=== PATIENT | female | born 2000 | race Two or more races ===

== ENCOUNTER 2023-10-20 09:24 | Emergency (ER) | payer BC, OTHER ==
[~2023-10-20] VITALS: Ht 167.6 cm; Wt 90.8 kg
[2023-10-20 10:38] LABS: Basophils # (auto) 0 10 ^3/uL (0-0.2); Basophils % (auto) 0.4 % (0.0-2.0); Eosinophils # (auto) 0 10 ^3/uL (0-0.8); Hematocrit 36.6 % (36.0-46.0); Hemoglobin 11.8 g/dL (12.2-16.2); Lymphocytes # (auto) 0.5 10 ^3/uL (0.4-5.4); Lymphocytes % (auto) 6.3 % (10.0-50.0); Mean Corpuscular Hgb Conc. 32.2 g/dL (32.0-36.0); Mean Corpuscular Volume 71.5 fL (80.0-100.0); Monocytes # (auto) 1.1 10 ^3/uL (0-1.3); Monocytes % (auto) 13.5 % (0.0-12.0); Neutrophils # (auto) 6.7 10 ^3/uL (1.6-8.6); Neutrophils % (auto) 79.8 % (37.0-80.0); Platelet Count (auto) 229 10^3/uL (140-450); Red Blood Cells 5.12 10^6/uL (4.0-5.20); Red Cell Distribution Width 19.4 % (11.8-14.3); White Blood Cell 8.4 10^3/uL (4.4-10.8)
[2023-10-20 12:50] VITALS: BP 111/61; PULSE 83; RESP 15; TEMP 98.6; O2SAT 100
== END 2023-10-20 13:05 | disposition home or self-care (01) ==
LOC: ER 09:40
DX: O20.0 Threatened abortion (principal); R10.2 Pelvic and perineal pain; Z3A.01 Less than 8 weeks gestation of pregnancy
CPT/HCPCS: 36415; 76801; 76817; 84702; 85025

== ENCOUNTER 2024-08-06 06:29 | Inpatient (IN) | payer BC, MEDICAID ==
[~2024-08-06] VITALS: Ht 167.6 cm; Wt 102.1 kg
--- NOTE | 2024-08-06 06:45 | ECG ---
[facility] Test Date: 2024-08-06 Test Time: 06:44:14 Pat Name: BELEN MALONEY Department: EED Room: [address] [place] [address] Gender: F [employer] Manager: JEYSON : 2000 Requested By: DASH CLOUD Order Number: [id number] Reading MD: Pool Chaudhry Measurements Intervals [place] Rate: 105 P: 75 LA: 137 QRS: 76 QRSD: 86 T: 34 QT: 337 QTc: 446 Interpretive Statements Sinus tachycardia Electronically Signed On 08-07-2024 21:18:25 PDT by Pool Chaudhry Please click the below link to view image of tracing.
--- NOTE | 2024-08-06 06:51 | ED.PDOC ---
HPI Comments 23 year old female presents to the ED with a chief complaint of chest pain onset 1 day. Patient states she has been experiencing chest pain for the past day, substernal, described as a pressure sensation as well as shortness of breath. Patient was experiencing back pain for the past 5 days, has been taking Ibuprofen with intermediate relief of symptoms. PMHx anemia. Denies palpitations, fevers, chills, headache, dizziness, weakness, numbness/tingling, blurry vision, fevers, chills, nausea, vomiting. No other symptoms or modifying factors present at this time. Chief Complaint: Chest Pain Time Seen by MD: 06:40 Reviewed Notes: Medications, Allergies Allergies: Coded Allergies: NO KNOWN ALLERGIES (Unverified , 10/20/23) Information Source: Patient Mode of Arrival: Ambulatory Severity: Moderate Timing: Days Duration: Since onset Prehospital treatment: Pain Meds (Ibuprofen) Location: Substernal Radiation: No Radiation Quality: Pressure Onset: At Rest Cardiac Risk Factors: None PE Risk Factors: None History of: None Associated Signs and Symptoms: SOB, Back Pain Past Medical History PAST MEDICAL HISTORY: Anemia Surgical History: Denies all surgeries MARKETING ACCOUNT MANAGER History: No Pertinent MARKETING ACCOUNT MANAGER History Family History Family History: Family hx of DM Social History Smoker: Non-Smoker Alcohol: Denies ETOH Use Drugs: Denies Drug Use Lives In: Home Constitutional: denies: chills, diaphoresis, fatigue, fever, malaise, sweats, weakness, others EENTM: denies: blurred vision, double vision, ear bleeding, ear discharge, ear drainage, ear pain, ear ringing, eye pain, eye redness, hearing loss, mouth pain, mouth swelling, nasal discharge, nose bleeding, nose congestion, nose pain, photophobia, tearing, throat pain, throat swelling, voice changes, others Respiratory: reports: shortness of breath; denies: cough, hemoptysis, ort hopnea, SOB at rest, SOB with excertion, stridor, wheezing, others Cardiovascular: reports: chest pain; denies: dizzy spells, diaphoresis, Dyspnea on exertion, edema, irregular heart beat, left arm pain, lightheadedness, palpitations, PND, syncope, others Gastrointestinal: denies: abdomen distended, abdominal pain, blood streaked bowels, constipated, diarrhea, dysphagia, difficulty swallowing, hematemesis, melena, nausea, poor appetite, poor fluid intake, rectal bleeding, rectal pain, vomiting, others Genitourinary: denies: abnormal vagina bleeding, burning, dyspareunia, dysuria, flank pain, frequency, hematuria, incontinence, pain, , vagina discharge, urgency, others Neurological: denies: dizziness, fainting, headache, left sided numbness, left sided weakness, numbness, paresthesia, pre-existing deficit, right sided numbness, right sided weakness, seizure, speech problems, tingling, tremors, w eakness, others Musculoskeletal: reports: back pain; denies: gout, joint pain, joint swelling, muscle pain, muscle stiffness, neck pain, others Integumetry: denies: bruises, change in color, change in hair/nails, dryness, laceration, lesions, lumps, rash, wounds, others Allergic/Immunocompromised: denies: Difficulty Healing, Frequent Infections, Hives, Itching, others Hematologic/Lymphatic: denies: anemia, blood clots, easy bleeding, easy bruising, swollen glands, others Endocrine: denies: excessive hunger, excessive sweating, excessive thirst, excessive urination, flushing, intolerance to cold, intolerance to heat, unexplained weight gain, unexplained weight loss, others Psychiatric: denies: anxiety, bipolar disorder, depression, hopeless, panic disorder, schizophrenia, sleepless, suicidal, others All Other Systems: Reviewed and Negative Physical Exam General Appearance: Normal HEENT: Normal ENT Inspection, Pharynx Normal, TMs Normal Neck: Full Range of Motion, Non-Tender, Normal, Normal Inspection Respiratory: Chest Non-Tender, Lungs Clear, No Accessory Muscle Use, No Respiratory Distress, Normal Breath Sounds Cardiovascular: No Edema, No JVD, No Murmur, No Gallop, Normal Peripheral Pulses, Regular Rate/Rhythm Breast Exam: Deferred Gastrointestinal: No Organomegaly, Non Tender, No Pulsatile Mass, Normal Bowel Sounds, Soft Genitalia: Deferred Pelvic: Deferred Rectal: Deferred Extremities: No calf tenderness, Normal capillary refill, Normal inspection, Normal range of motion, Non-tender, No pedal edema Musculoskeletal : Apperance: Normal Neurologic: Alert, credit historian II-XII nml as Tested, No Motor Deficits, Normal Affect, Normal Mood, No Sensory Deficits Cerebellar Function: Normal Reflexes: Normal Skin: Dry, Normal Color, Warm Lymphatic: No Adenopathy EKG EKG : Pulse Rate (adult): 105 Cardiac Rhythm: ST Was a procedure done? Was a procedure done?: No CP Differential Dx Differential Diagnosis: MAT, PAC's, PVC's Differential Diagnosis: HTN Essential, HTN Accelerated Differential Diagnosis: Gastritis, Myocardial Infarction X-Ray, Labs, Meds, VS Vital Signs Date Time Temp Pulse Resp B/P (MAP) Pulse Ox O2 Delivery O2 Flow Rate FiO2 08/06/24 08:30 105 08/06/24 07:45 98.6 99 18 129/75 (93) 100 98.6 08/06/24 07:45 99 08/06/24 06:44 105 08/06/24 06:44 98.3 117 20 110/66 (81) 99 98.3 Lab Test 08/06/24 08:29 08/06/24 07:50 08/06/24 07:15 Range/Units Troponin I High Sensitivity Pending < 3 L </=34 ng/L Urine Color Colorless Yellow Urine Clarity Turbid H Clear Urine pH 7.0 5.0-9.0 Urine Specific [place] 1.018 1.001-1.035 Urine Protein Negative Negative Urine Ketones Negative Negative Urine Blood 3+ H Negative /uL Urine Nitrite 1+ H Negative Urine Bilirubin Negative Negative Urine Urobilinogen Normal Negative mg/dL Urine Leukocyte Esterase 2+ Negative /uL Urine RBC 38 0 - 4 /hpf Urine Microscopic WBC 51 H 0-5 /HPF Urine Squamous Epithelial Cells Few <5 /hpf Urine Bacteria Few H None Seen /hpf Urine Glucose Normal Normal mg/dL White Blood Count 13.6 H 4.4-10.8 10^3/uL Red Blood Count 4.57 4.0-5.20 10^6/uL Hemoglobin 11.5 L 12.2-16.2 g/dL Hematocrit 35.4 L 36.0-46.0 % Mean Corpuscular Volume 77.4 L 80.0-100.0 fL Mean Corpuscular Hemoglobin 25.2 L 28.0-32.0 pg Mean Corpuscular Hemoglobin Concent 32.6 32.0-36.0 g/dL Red Cell Distribution Width 16.1 H 11.8-14.3 % Platelet Count 228 140-450 10^3/uL Mean Platelet Volume 7.8 6.9-10.8 fL Neutrophils (%) (Auto) 78.8 37.0-80.0 % Lymphocytes (%) (Auto) 8.0 L 10.0-50.0 % Monocytes (%) (Auto) 12.9 H 0.0-12.0 % Eosinophils (%) (Auto) 0.1 0.0-7.0 % Basophils (%) (Auto) 0.2 0.0-2.0 % Neutrophils # (Auto) 10.7 H 1.6-8.6 10 ^3/uL Lymphocytes # (Auto) 1.1 0.4-5.4 10 ^3/uL Monocytes # (Auto) 1.8 H 0-1.3 10 ^3/uL Eosinophils # (Auto) 0 0-0.8 10 ^3/uL Basophils # (Auto) 0 0-0.2 10 ^3/uL Nucleated Red Blood Cells 0.0 % Sodium Level 138 136-145 mmol/L Potassium Level 4.0 3.5-5.1 mmol/L Chloride Level 104 98-107 mmol/L Carbon Dioxide Level 22 20-31 mmol/L Anion Gap 12 5-15 Blood Urea Nitrogen 12 9-23 mg/dL Creatinine 0.72 0.550-1.02 mg/dL Glomerular Filtration Rate Calc 120 >90 mL/min BUN/Creatinine Ratio 16.7 10.0-20.0 Serum Glucose 109 H 74-106 mg/dL Calcium Level 9.7 8.7-10.4 mg/dL Current Medications Medications (Trade) Dose Ordered Sig/Anthony Route Start Time Stop Time Status Last Admin Famotidine (Pepcid Tablet) 20 mg ONCE ONCE PO 08/06/24 06:45 08/06/24 06:46 DC 08/06/24 07:46 Al Hydrox/Mg Hydrox/Simethicone (Maalox Plus) 15 ml ONCE ONCE PO 08/06/24 06:45 08/06/24 06:46 DC 08/06/24 07:[address] [address] Ph: [phone] DIAGNOSTIC IMAGING Diagnostic Imaging Report : [id number] Signed PATIENT: BELEN MALONEY ACCT: [id number] UNIT: [id number] : 2000 LOC: ER ROOM / BED: / AGE / SEX: 23 / F ADM STATUS: REG ER SERVICE 1 ORDERING PHYSICIAN: DASH CLOUD MD PROCEDURE(s): CXRP - CHEST PORTABLE REASON: chest pain ORDER NUMBER(s): [id number], ACCESSION NUMBER(s): [id number] CLINICAL INFORMATION: 23 years old, Female; chest pain. TECHNIQUE: Single AP portable chest radiograph was obtained. COMPARISON: None FINDINGS: Lungs: Clear. Cardiac: Heart size is within normal limits. Pulmonary vasculature: Unremarkable. Mediastinum/simeon: Unremarkable. Bones: No acute osseous abnormality identified. Other: No other significant findings. IMPRESSION: No evidence of acute disease in the chest. ATED BY: KAUSHAL STONE DO DICTATED DATE/TIME: 08/06/24731 SIGNED BY: KAUSHAL STONE DO SIGNED DATE/TIME: 08/06/24731 CC: Time of 1ST Reevaluation: 07:10 Reevaluation 1ST: Unchanged Patient Education/Counseling: Diagnosis, Treatment, Prognosis Family Education/Counseling: No Family Present SEPSIS Sepsis Screen Physician Orders Chest Portable (08/06/24 06:42) Troponin-I Hs (08/06/24 07:42) Troponin-I Hs (08/06/24 09:42) Electrocardigram (08/06/24 07:42) Electrocardigram (08/06/24 09:42) Vital Signs Date Time Temp Pulse Resp B/P (MAP) Pulse Ox O2 Delivery O2 Flow Rate FiO2 08/06/24 08:30 105 08/06/24 07:45 98.6 99 18 129/75 (93) 100 98.6 08/06/24 07:45 99 08/06/24 06:44 105 08/06/24 06:44 98.3 117 20 110/66 (81) 99 98.3 Laboratory Tests Test 08/06/24 07:15 White Blood Count 13.6 10^3/uL (4.4-10.8) H Medications Medications Dose Ordered Sig/Anthony Route Start Time Stop Time Status Last Admin Dose Admin Al Hydrox/Mg Hydrox/Simethicone 15 ml ONCE ONCE PO 08/06/24 06:45 08/06/24 06:46 DC 08/06/24 07:46 Famotidine 20 mg ONCE ONCE PO 08/06/24 06:45 08/06/24 06:46 DC 08/06/24 07:46 Departure 1 Departure Time of Disposition: 09:02 (Patient presented with chest pain that was concerning for possible STEMI, ACS, PE, Pneumonia, Muscle Strain, COPD, Dissection. Data: 1. I ordered and reviewed the result of at least 3 labs including a CBC, BMP, and Troponin. 2. I independently interpreted the following tests: EKG which shows normal sinus rhythm and Chest X-ray which shows a benign chest.Risk:This patient presented with a high risk of morbidity due to further diagnostic testing or treatment and may suffer from an acute cardiac or respiratory disorder. After review of all the data patient is unlikely to have a pe , dissection, and is low risk for acs. Patient is stable at this time.Workup so far is concerning for urinary tract infection. We will discharge patient home with outpatient follow up. ) Impression: Primary Impression: Acute cystitis Qualified Codes: N30.01 - Acute cystitis with hematuria Additional Impression: Acute chest pain Disposition: HOME / SELF CARE / HOMELESS Condition: Stable Additional Instructions: You presented today with chest pain. Your workup today was benign including labs, troponin, EKG, chest x-ray. Your pain may be from musculoskeletal strain, acid reflux, anxiety, or many other factors. You do have a urinary tract infection. You were prescribed antibiotics. Please take as directed. For pain you can take the followinam: Ibuprofen 400mg with food Noon: Acetaminophen 1000mg 4pm: Ibuprofen 400mg with food 8pm: Acetaminophen 1000mg You should follow up with your regular doctor within one week to ensure you are doing better. If your symptoms worsen or you have any other concerns then please return to the ER. e-Prescriptions Cefdinir (Cefdinir) 300 Mg Cap 1 CAP PO BID for 5 Days, #14 CAP Prov: DASH CLOUD MD 08/06/24 Discharged With: Self Critical Care Note Critical Care Time?: No Stability Stability form required: No Heart Score Heart Score: Heart Score Response (Comments) Value History Slightly Suspicious 0 EKG Normal 0 Age <45 0 Risk Factors No known risk factors 0 Troponin Normal limit 0 Total 0 I personally scribed for DASH CLOUD MD ([email or web address]) on 08/06/24 at 06:50. Electronically submitted by Effie Prado ([email or web address]). I personally scribed for DASH CLOUD MD ([email or web address]) on 08/06/24 at 08:30. E lectronically submitted by Effie Prado ([email or web address]). DASH CLOUD MD Aug 06, 2024 06:50
[2024-08-06 07:33] LABS: Basophils # (auto) 0 10 ^3/uL (0-0.2); Basophils % (auto) 0.2 % (0.0-2.0); Eosinophils # (auto) 0 10 ^3/uL (0-0.8); Eosinophils % (auto) 0.1 % (0.0-7.0); Hematocrit 35.4 % (36.0-46.0); Hemoglobin 11.5 g/dL (12.2-16.2); Lymphocytes # (auto) 1.1 10 ^3/uL (0.4-5.4); Mean Corpuscular Hemoglobin 25.2 pg (28.0-32.0); Mean Corpuscular Hgb Conc. 32.6 g/dL (32.0-36.0); Mean Corpuscular Volume 77.4 fL (80.0-100.0); Monocytes # (auto) 1.8 10 ^3/uL (0-1.3); Monocytes % (auto) 12.9 % (0.0-12.0); Neutrophils # (auto) 10.7 10 ^3/uL (1.6-8.6); Neutrophils % (auto) 78.8 % (37.0-80.0); Platelet Count (auto) 228 10^3/uL (140-450); Red Blood Cells 4.57 10^6/uL (4.0-5.20); Red Cell Distribution Width 16.1 % (11.8-14.3); White Blood Cell 13.6 10^3/uL (4.4-10.8)
--- NOTE | 2024-08-06 07:34 | DVH ---
CLINICAL INFORMATION: 23 years old, Female; chest pain. TECHNIQUE: Single AP portable chest radiograph was obtained. COMPARISON: None FINDINGS: Lungs: Clear. Cardiac: Heart size is within normal limits. Pulmonary vasculature: Unremarkable. Mediastinum/simeon: Unremarkable. Bones: No acute osseous abnormality identified. Other: No other significant findings. IMPRESSION: No evidence of acute disease in the chest.
[2024-08-06] MEDS: MAALOX PLUS or MAALOX 30 ML PO ONE (07:46)
[2024-08-06] MEDS: FAMOTIDINE 20 MG TAB PO ONE (07:46)
[2024-08-06 07:51] LABS: Chloride 104 mmol/L (98-107); Sodium 138 mmol/L (136-145)
[2024-08-06 07:52] LABS: Anion Gap 12 (5-15); Calcium 9.7 mg/dL (8.7-10.4); Carbon Dioxide 22 mmol/L (20-31)
[2024-08-06 07:57] LABS: BUN/Creatinine Ratio 16.7 (10.0-20.0); Blood Urea Nitrogen 12 mg/dL (9-23)
[2024-08-06 07:58] LABS: Glucose 109 mg/dL (74-106)
[2024-08-06 08:23] LABS: Urine Bacteria FEW /hpf (None Seen); Urine Blood 3+ /uL (Negative); Urine Clarity Turbid (Clear); Urine Color Colorless (Yellow); Urine Protein, UAD Negative (Negative); Urine Specific Gravity 1.018 (1.001-1.035); Urine Squamous Epithelial Cell FEW /hpf (<5); Urine Urobilinogen Normal (Negative); Urine WBC 51 /HPF (0-5)
[2024-08-06] MEDS ORDERED: CEFD300C2 PO (09:04)
[2024-08-06] MEDS: cefTRIAXone W LIDOCAINE 1 GM IM IM ONE (09:15)
[2024-08-06] MEDS: ACETAMINOPHEN 325 MG TAB PO ONE ×2 (10:10→10:11)
--- NOTE | 2024-08-06 10:46 | ED.PDOC ---
Departure 1 Departure Time of Disposition: 09:02 (Patient presented with chest pain that was concerning for possible STEMI, ACS, PE, Pneumonia, Muscle Strain, COPD, Dissection. Data: 1. I ordered and reviewed the result of at least 3 labs including a CBC, BMP, and Troponin. 2. I independently interpreted the following tests: EKG which shows normal sinus rhythm and Chest X-ray which shows a benign chest.Risk:This patient presented with a high risk of morbidity due to further diagnostic testing or treatment and may suffer from an acute cardiac or respiratory disorder. After review of all the data patient is unlikely to have a pe , dissection, and is low risk for acs. Patient is stable at this time.Workup so far is concerning for urinary tract infection. We will discharge patient home with outpatient follow up. ) Impression: Primary Impression: Pyelonephritis Additional Impressions: Acute cystitis Qualified Codes: N30.01 - Acute cystitis with hematuria Acute chest pain Disposition: ADMITTED INPATIENT Admit to: Med Surg Condition: Guarded Additional Instructions: You presented today with chest pain. Your workup today was benign including labs, troponin, EKG, chest x-ray. Your pain may be from musculoskeletal strain, acid reflux, anxiety, or many other factors. You do have a urinary tract infection. You were prescribed antibiotics. Please take as directed. For pain you can take the followinam: Ibuprofen 400mg with food Noon: Acetaminophen 1000mg 4pm: Ibuprofen 400mg with food 8pm: Acetaminophen 1000mg You should follow up with your regular doctor within one week to ensure you are doing better. If your symptoms worsen or you have any other concerns then please return to the ER. e-Prescriptions Cefdinir (Cefdinir) 300 Mg Cap 1 CAP PO BID for 5 Days, #14 CAP Prov: DASH CLOUD MD 08/06/24 Discharged With: Self Critical Care Note Critical Care Time?: Yes Critical care comment: Concern for sepsis Authorized and Performed by: Dash Cloud MD Total critical care time: Approximately 42 minutes Due to a high probability of clinically significant, life threatening deterioration, the patient required my highest level of preparedness to intervene emergently and I personally spent this critical care time directly and personally managing the patient. This critical care time included obtaining a history; examining the patient; pulse oximetry; ordering and review of studies; arranging urgent treatment with development of a management plan; evaluation of patient's response to treatment; frequent reassessment; and, discussions with other providers. This critical care time was performed to assess and manage the high probability of imminent, life-threatening deterioration that could result in multi-organ failure. It was exclusive of separately billable procedures and treating other patients and teaching time. Please see my other sections and the rest of the note for further information on patient assessment and treatment. DASH CLOUD MD Aug 06, 2024 10:46
[2024-08-06] MEDS: SODIUM CHLORIDE 0.9% 1,000 ML IV ONE (11:06)
[2024-08-06] MEDS: CEFEPIME 2GM/50ML NS 50 ML IV ONE (11:15)
[2024-08-06] MEDS ORDERED: MORPHINE SULFATE INJ 2 MG/ml SYRG IV PRN (11:45)
[2024-08-06] MEDS ORDERED: NITROGLYCERIN 0.4 MG SL TAB SL PRN ×2 (11:45)
[2024-08-06] MEDS ORDERED: ONDANSETRON HCL 4 MG/2 ML VIAL IV PRN (11:45)
[2024-08-06] MEDS ORDERED: MORPHINE SULFATE 4 MG/ML SYR/VIAL IV PRN (11:45)
--- NOTE | 2024-08-06 12:12 | DVHHP2 ---
History of Present Illness Reason for Visit: Chest pain History of Present Illness Mehgann Garcia is a 23-year-old female with past medical history of anemia who presents to the ED today for chest pain and points to her epigastric area states that it does not radiate. She stated it initially started as upper back pain today. She reports the pain as 10/10 pulsating and constant.. Patient's spouse Amado is at the chair side. Patient also reports that this pain has not occurred before. Patient denies any recent travels, recent trauma or injury, recent sick contacts, recent ingestion of spoiled food, abdominal pain, nausea, vomiting, diarrhea, shortness of breath, lightheadedness, weakness, or dizziness. Heme/Onc: Anemia NOS Past Surgical History: None Family History: None Smoke: No ALCOHOL: none Drugs: None Lives: with Family Domestic Violence: Neg Review of Systems Cardiovascular: Chest Pain Allergies: Coded Allergies: NO KNOWN ALLERGIES (Unverified , 10/20/23) Medications Current Medications Medications Dose Ordered Sig/Anthony Route Start Time Stop Time Status Last Admin Dose Admin Aspirin 81 mg DAILY PO 08/07/24 10:00 UNV Atorvastatin Calcium 40 mg HS PO 08/06/24 22:00 UNV Morphine Sulfate 2 mg Q30MP PRN IV 08/06/24 11:45 UNV Acetaminophen 650 mg Q6HP PRN PO 08/06/24 11:45 UNV Nitroglycerin 0.4 mg Q5MINP PRN SL 08/06/24 11:45 UNV Ondansetron HCl 4 mg Q4HP PRN IV 08/06/24 11:45 UNV Nitroglycerin 0.4 mg Q5MINP PRN SL 08/06/24 11:45 UNV Morphine Sulfate 2 mg Q30M PRN IV 08/06/24 11:45 UNV Vancomycin HCl 0 ml @ 0 mls/hr UD IV 08/06/24 12:15 UNV Cefepime HCl 50 ml @ 12.5 mls/hr Q8HR IV 08/06/24 14:00 UNV Exam Vital Signs Vital Signs Date Time Temp Pulse Resp B/P (MAP) Pulse Ox O2 Delivery O2 Flow Rate FiO2 08/06/24 10:10 100.5 119 16 113/73 (86) 97 100.5 General Appearance: Alert, Oriented X3, Cooperative, No acute distress HEENT: Atraumatic, PERRLA, EOMI, Mucous membr. moist/pink Respiratory: Normal air movement Cardiovascular: Normal S1, Normal S2 Abdominal: Soft Extremities: Normal pulses Skin: No significant lesion Neuro: Normal gait, Normal speech, Strength at 5/5 X4 ext, Normal tone, Sensation intact Psych/Mental Status: Mental status NL, Mood NL Labs/Xrays Labs Test 08/06/24 11:02 08/06/24 10:09 08/06/24 07:50 08/06/24 07:15 Range/Units Lactic Acid Level 1.0 0.4-2.0 mmol/L Troponin I High Sensitivity < 3 L </=34 ng/L Urine Color Colorless Yellow Urine Clarity Turbid H Clear Urine pH 7.0 5.0-9.0 Urine Specific [place] 1.018 1.001-1.035 Urine Protein Negative Negative Urine Ketones Negative Negative Urine Blood 3+ H Negative /uL Urine Nitrite 1+ H Negative Urine Bilirubin Negative Negative Urine Urobilinogen Normal Negative mg/dL Urine Leukocyte Esterase 2+ Negative /uL Urine RBC 38 0 - 4 /hpf Urine Microscopic WBC 51 H 0-5 /HPF Urine Squamous Epithelial Cells Few <5 /hpf Urine Bacteria Few H None Seen /hpf Urine Glucose Normal Normal mg/dL White Blood Count 13.6 H 4.4-10.8 10^3/uL Red Blood Count 4.57 4.0-5.20 10^6/uL Hemoglobin 11.5 L 12.2-16.2 g/dL Hematocrit 35.4 L 36.0-46.0 % Mean Corpuscular Volume 77.4 L 80.0-100.0 fL Mean Corpuscular Hemoglobin 25.2 L 28.0-32.0 pg Mean Corpuscular Hemoglobin Concent 32.6 32.0-36.0 g/dL Red Cell Distribution Width 16.1 H 11.8-14.3 % Platelet Count 228 140-450 10^3/uL Mean Platelet Volume 7.8 6.9-10.8 fL Neutrophils (%) (Auto) 78.8 37.0-80.0 % Lymphocytes (%) (Auto) 8.0 L 10.0-50.0 % Monocytes (%) (Auto) 12.9 H 0.0-12.0 % Eosinophils (%) (Auto) 0.1 0.0-7.0 % Basophils (%) (Auto) 0.2 0.0-2.0 % Neutrophils # (Auto) 10.7 H 1.6-8.6 10 ^3/uL Lymphocytes # (Auto) 1.1 0.4-5.4 10 ^3/uL Monocytes # (Auto) 1.8 H 0-1.3 10 ^3/uL Eosinophils # (Auto) 0 0-0.8 10 ^3/uL Basophils # (Auto) 0 0-0.2 10 ^3/uL Nucleated Red Blood Cells 0.0 % Sodium Level 138 136-145 mmol/L Potassium Level 4.0 3.5-5.1 mmol/L Chloride Level 104 98-107 mmol/L Carbon Dioxide Level 22 20-31 mmol/L Anion Gap 12 5-15 Blood Urea Nitrogen 12 9-23 mg/dL Creatinine 0.72 0.550-1.02 mg/dL Glomerular Filtration Rate Calc 120 >90 mL/min BUN/Creatinine Ratio 16.7 10.0-20.0 Serum Glucose 109 H 74-106 mg/dL Calcium Level 9.7 8.7-10.4 mg/dL CLINICAL INFORMATION: 23 years old, Female; chest pain. TECHNIQUE: Single AP portable chest radiograph was obtained. COMPARISON: None FINDINGS: Lungs: Clear. Cardiac: Heart size is within normal limits. Pulmonary vasculature: Unremarkable. Mediastinum/simeon: Unremarkable. Bones: No acute osseous abnormality identified. Other: No other significant findings. IMPRESSION: No evidence of acute disease in the chest. Procedure: CT CHEST WITHOUT CONTRAST Reason for study/Clinical History: chest pain Comparison Study: None TECHNIQUE: Multidetector CT of the chest was performed from the lung apices to the upper abdomen without the use of intravenous contract. Axial, coronal and sagittal multiplanar reformats were performed. Radiation Dose Information: CT Dose: CTDI volume is 12.86 mGy. Dose-length p roduct is 438.45 mGy*cm The dose indicators for CT are the volume Computed Tomography (CT) Dose Index (CTDIvol) and the Dose Length Product (DLP), and are measured in units of mGy and mGy-cm, respectively. These indicators are not patient dose, but values generated from the CT scanner acquisition factors. The report includes radiation exposure data for exposures received during this examination. FINDINGS: Lower neck: Unremarkable. Lungs: No focal consolidation. No suspicious pulmonary nodule. Heart/Vascular Structures: Normal heart size. No pericardial effusion. Lymph Nodes: No adenopathy Pleura: No pleural effusion or significant pneumothorax. Musculoskeletal: No acute osseous abnormality. Soft tissues: Normal. Upper abdomen: Suggestion of inflammatory changes associated with the gallbladder. IMPRESSION: No acute intrathoracic abnormality. Possible inflammatory changes associated with the gallbladder. Recommend right upper quadrant ultrasound for further evaluation. Assessment/Plan Assessment/Plan Assessment Chest pain Pyrexia Leukocytosis likely due to UTI rule out sepsis Anemia History of anemia Plan Admit to tele IV antibiotics-vancomycin + cefepime Ceftriaxone given in ED UA NS 1 L given ED Antiemetics Maalox given in ED H2 blockers given ED Blood culture Lactic level EKG Chest x-ray noted Troponin negative x3 Echo ordered CT chest ordered Urine culture TSH Hemoglobin A1c UDS Free T4 ESR CRP Ultrasound gallbladder ordered Diet DVT prophylaxis-not indicated patient ambulating PUD prophylaxis-not indicated no history of GERD or GI bleed Discussed plan of care with patient and nurse Plan discussed with: Patient My Orders Orders - SG KIRKPATRICK CANCER PROGRAM DIRECTOR Procedure Category Date Status Time Echo 2d Mode Cardiac US 08/06/24 Logged DOP 11:[address] 08/06/24 Taken 11:32 Admit ADMIT 08/06/24 Transmitted 11:33 Code Status CODE 08/06/24 Transmitted 11:33 Vital Signs THIERNO 08/06/24 In Process 11:33 Steam Crane Operator THIERNO 08/06/24 In Process 11:33 Aspirin Tablet PHA 08/07/24 Logged 10:00 Atorvastatin (Lipitor) PHA 08/06/24 Logged 22:00 Morphine Sulfate PHA 08/06/24 Logged Injection 11:45 Acetaminophen Tablet PHA 08/06/24 Logged (Tylenol Tablet) 11:45 Complete Blood Count LAB 08/07/24 Verified 04:00 Basic Metabolic Panel LAB 08/07/24 Verified 04:00 Magnesium LAB 08/07/24 Verified 04:00 Lipid Panel LAB 08/07/24 Verified 04:00 Nitroglycerin PHA 08/06/24 Logged Sublingual (Ntrostat 11:45 Ondansetron Hcl PHA 08/06/24 Logged (Zofran) 11:45 Electrocardigram EKG 08/07/24 Logged 04:00 Troponin-I Hs LAB 08/06/24 Logged 11:33 Cardiac THIERNO 08/06/24 In Process Rehabilitation - Outpa Comprehensive LAB 08/08/24 Verified Metabolic Panel 04:00 Nitroglycerin PHA 08/06/24 Logged Sublingual (Ntrostat 11:45 Morphine Sulfate PHA 08/06/24 Logged Injection 11:45 Stat Ekg For Chest THIERNO 08/06/24 In Process Pain 11:33 Notify Md Of Changes THIERNO 08/06/24 In Process From Base 11:33 Assistant Professor Of Biochemistry For THIERNO 08/06/24 In Process 24 Hours 11:33 Emergency Dysrhythmia [facility] 08/06/24 In Process Protocol 11:33 Rhythm Strips Once [facility] 08/06/24 In Process Every Shift 11:33 Oxygen By Nasal RT 08/06/24 Transmitted Cannula 11:33 Vancomycin Per PHA 08/06/24 Logged Pharmacy 12:15 Cefepime 1gm/ 50ml PHA 08/06/24 Logged (Maxipime 1gm/50ml) 14:00 Urine Bacterial LANRE 08/06/24 Logged Culture 12:06 Erythrocyte LAB 08/06/24 Logged Sedimentation Rate 12:06 C-Reactive Protein LAB 08/06/24 Logged 12:06 Date of Service: Aug 06, 2024 Billing Provider: SG KIRKPATRICK Common Visit Codes: [id number] INP/OBS CARE (HIGH) SG KIRKPATRICK Aug 06, 2024 12:12
[2024-08-06] MEDS ORDERED: VANCOMYCIN PER PHARMACY 0 MG IV SCH (12:15)
--- NOTE | 2024-08-06 12:19 | DVH ---
Procedure: CT CHEST WITHOUT CONTRAST Reason for study/Clinical History: chest pain Comparison Study: None TECHNIQUE: Multidetector CT of the chest was performed from the lung apices to the upper abdomen with out the use of intravenous contract. Axial, coronal and sagittal multiplanar reformats were performed . Radiation Dose Information: CT Dose: CTDI volume is 12.86 mGy. Dose-length product is 438.45 mGy*cm The dose indicators for CT are the volume Computed Tomography (CT) Dose Index (CTDIvol) and the Dose Length Product (DLP), and are measured in units of mGy and mGy-cm, respectively. These indicators are not patient dose, but values generated from the CT scanner acquisition factors. The report includes radiation exposure data for exposures received during this examination. FINDINGS: Lower neck: Unremarkable. Lungs: No focal consolidation. No suspicious pulmonary nodule. Heart/Vascular Structures: Normal heart size. No pericardial effusion. Lymph Nodes: No adenopathy Pleura: No pleural effusion or significant pneumothorax. Musculoskeletal: No acute osseous abnormality. Soft tissues: Normal. Upper abdomen: Suggestion of inflammatory changes associated with the gallbladder. IMPRESSION: No acute intrathoracic abnormality. Possible inflammatory changes associated with the gallbladder. Recommend right upper quadrant ultraso und for further evaluation. Radiation optimization: All CT scans at this facility use at least one of these dose optimization león hniques: automated exposure control mA and/or kV adjustment per patient size (includes targeted exam s where dose is matched to clinical indication) or iterative reconstruction.
[2024-08-06] MEDS: VANCOMYCIN 1GM/200ML PM 200 ML IV ONE (12:31)
[2024-08-06 13:16] LABS: Amphetamine Screen, Urine Neg (NEGATIVE); Barbiturate Scree,Urine Neg (NEGATIVE); Benzodiazephine Screen, Urine Neg (NEGATIVE); Cannabinoid Screen, Urine Neg (NEGATIVE); Cocaine Screen, Urine Neg (NEGATIVE); Opiate Scree,Urine Neg (NEGATIVE); Phencyclidine Screen, Urine Neg (NEGATIVE)
[2024-08-06 13:20] LABS: Erythrocyte Sedimentation Rate 32 mm/hr (0-20)
[2024-08-06] MEDS: MORPHINE SULFATE INJ 2 MG/ml SYRG IV ONE (13:33)
[2024-08-06] MEDS ORDERED: CEFEPIME 1GM/ 50ML 50 ML IV SCH (14:00)
[2024-08-06] MEDS: ACETAMINOPHEN 325 MG TAB PO PRN (16:05)
--- NOTE | 2024-08-06 16:26 | DVH ---
INDICATION: r/o anjelica TECHNIQUE: Multiple real-time sonographic images of the abdomen were obtained. COMPARISON: None FINDINGS: The liver is homogenous in echogenicity. The liver measures 14.98 cm. No intrahepatic bili gisella ductal dilatation is noted. The gallbladder wall measures 0.38 cm and is thickened. Gallstone and sludge.. The common duct tho sures 0.4 cm and is unremarkable. No pericholecystic fluid is noted. Sonographic pat's sign is ne gative The right kidney measures not measured cm. No hydronephrosis. The pancreas is not well visualized due to obscuration from bowel gas. IMPRESSION: 1. Cholelithiasis with sludge and thickened gallbladder wall. Negative sonographic pat's sign. 2. Right kidney not measured HS:Y
[2024-08-06 21:00] VITALS: BP 122/69; PULSE 108; RESP 18; TEMP 99.3; O2SAT 99
[2024-08-06 21:21] VITALS: BP 122/69; PULSE 108; RESP 18; TEMP 99.3; O2SAT 99
[2024-08-06] MEDS: CEFEPIME 1GM/ 50ML 50 ML IV SCH (22:29)
[2024-08-06] MEDS: ATORVASTATIN 20 MG TAB PO SCH (22:29)
[2024-08-07 01:00] VITALS: BP 116/65; PULSE 103; RESP 17; TEMP 99.8; O2SAT 98
[2024-08-07] MEDS: VANCOMYCIN 1GM/200ML PM 200 ML IV SCH (04:37)
[2024-08-07] MEDS: MORPHINE SULFATE INJ 2 MG/ml SYRG IV PRN (04:45)
[2024-08-07 05:00] VITALS: BP 109/58; PULSE 100; RESP 18; TEMP 98.6; O2SAT 98
[2024-08-07 05:21] LABS: Basophils # (auto) 0 10 ^3/uL (0-0.2); Basophils % (auto) 0.2 % (0.0-2.0); Eosinophils # (auto) 0 10 ^3/uL (0-0.8); Hematocrit 33.2 % (36.0-46.0); Hemoglobin 10.9 g/dL (12.2-16.2); Lymphocytes # (auto) 1.4 10 ^3/uL (0.4-5.4); Lymphocytes % (auto) 8.8 % (10.0-50.0); Mean Corpuscular Hemoglobin 25.4 pg (28.0-32.0); Mean Corpuscular Hgb Conc. 32.8 g/dL (32.0-36.0); Mean Corpuscular Volume 77.4 fL (80.0-100.0); Neutrophils # (auto) 12.1 10 ^3/uL (1.6-8.6); Platelet Count (auto) 210 10^3/uL (140-450); Red Blood Cells 4.29 10^6/uL (4.0-5.20); Red Cell Distribution Width 15.7 % (11.8-14.3); White Blood Cell 15.5 10^3/uL (4.4-10.8)
[2024-08-07 05:27] LABS: Anion Gap 11 (5-15); Carbon Dioxide 22 mmol/L (20-31); Chloride 105 mmol/L (98-107); Potassium 3.7 mmol/L (3.5-5.1); Sodium 138 mmol/L (136-145)
[2024-08-07 05:28] LABS: Calcium 9.1 mg/dL (8.7-10.4)
[2024-08-07 05:33] LABS: BUN/Creatinine Ratio 10.6 (10.0-20.0)
[2024-08-07 05:34] LABS: Magnesium 1.8 mg/dL (1.6-2.6)
[2024-08-07 05:35] LABS: Blood Urea Nitrogen 7 mg/dL (9-23); Glucose 113 mg/dL (74-106)
[2024-08-07 05:49] LABS: Triglycerides 51 mg/dL (< 150)
[2024-08-07 05:50] LABS: LDL Cholesterol 55 mg/dL (< 100)
[2024-08-07 05:51] LABS: Cholesterol 121 mg/dL (< 200); HDL Cholesterol 52 mg/dL (40-59)
[2024-08-07] MEDS: SODIUM CHLORIDE 0.9% 1,000 ML IV ONE (08:45)
[2024-08-07 09:00] VITALS: BP 120/74; PULSE 126; RESP 20; TEMP 100; O2SAT 97
[2024-08-07] MEDS: ASPirin 81 mg TAB PO SCH (09:15)
[2024-08-07] MEDS: CEFEPIME 1GM/ 50ML 50 ML IV SCH (09:16)
[2024-08-07] MEDS ORDERED: VANCOMYCIN 1GM/250ML KIT 250 ML IV SCH (12:00)
--- NOTE | 2024-08-07 14:15 | DVHPNRES ---
Progress Note Date Seen: Aug 07, 2024 Resident Creating Document: CHATA PHILLIP RESIDENT Has the PT tested + for MRSA If YES, has PT been informed?: No Medical Necessity Reason Pt with a Central, PICC or Fol: No Subjective Review of Systems Meghann Garcia is a 23-year-old female with past medical history of anemia who presents to the ED today for chest pain and points to her epigastric area states that it does not radiate. She stated it initially started as upper back pain today. She reports the pain as 10/10 pulsating and constant.. Patient's spouse Amado is at the chair side. Patient also reports that this pain has not occurred before. Patient denies any recent travels, recent trauma or injury, recent sick contacts, recent ingestion of spoiled food, abdominal pain, nausea, vomiting, diarrhea, shortness of breath, lightheadedness, weakness, or dizziness. 08/07/2024: UA: UTI, chest ct scan: Possible inflammatory changes associated with the gallbladder, US: Cholelithiasis with sludge and thickened gallbladder wall. Negative sonographic pat's sign. IV fluids given, HR improves, AB will downgraded to ceftriaxone + metronidazole, HIDA scan showed cystic duct obstruction. Objective vital signs Vital Sign Date Time Temp Pulse Resp B/P (MAP) Pulse Ox O2 Delivery O2 Flow Rate FiO2 08/07/24 09:47 106 20 112/61 08/07/24 09:00 100.0 97 100.0 08/06/24 21:21 Room Air* 0 21 Total Intake and Output 08/06/24 08/06/24 08/07/24 15:00 23:00 07:00 Intake Total 1050 ml 200 ml 50 ml Balance 1050 ml 200 ml 50 ml medications Current Medications Medications Dose Ordered Sig/Anthony Route Start Time Stop Time Status Last Admin Dose Admin Aspirin 81 mg DAILY PO 08/07/24 10:00 08/07/24 09:15 81 MG Atorvastatin Calcium 40 mg HS PO 08/06/24 22:00 08/06/24 22:29 40 MG Morphine Sulfate 2 mg Q30MP PRN IV 08/06/24 11:45 Acetaminophen 650 mg Q6HP PRN PO 08/06/24 11:45 08/06/24 22:33 650 MG Nitroglycerin 0.4 mg Q5MINP PRN SL 08/06/24 11:45 Ondansetron HCl 4 mg Q4HP PRN IV 08/06/24 11:45 Vancomycin HCl 0 ml @ 0 mls/hr UD IV 08/06/24 12:15 Morphine Sulfate 1 mg Q4HP PRN IV 08/07/24 03:15 08/07/24 09:17 1 MG Cefepime HCl 50 ml @ 12.5 mls/hr Q8H IV 08/07/24 08:00 08/07/24 09:16 12.5 MLS/HR Vancomycin HCl 250 ml @ 250 mls/hr Q8H IV 08/07/24 12:00 Examination General Appearance: Alert, Oriented X3, Cooperative, No acute distress HEENT: Atraumatic, PERRLA, EOMI, Mucous membr. moist/pink Respiratory: Normal air movement Cardiovascular: Normal S1, Normal S2 Abdominal: Soft, RUQ tenderness, pat neg Extremities: Normal pulses Skin: No significant lesion Neuro: Normal gait, Normal speech, Strength at 5/5 X4 ext, Normal tone, Sensation intact Psych/Mental Status: Mental status NL, Mood NL laboratory and microbiology Laboratory Tests 08/07/24 04:21 Test 08/07/24 04:21 Range/Units Serum Glucose 113 H 74-106 mg/dL Microbiology Date/Time Source Procedure Growth Status 08/06/24 11:02 Blood Blood Culture - Preliminary NO GROWTH AFTER 24 HOURS OF INCUBATION. Resulted 08/06/24 07:50 Voided Urine Urine Culture - Preliminary Resulted Problem List/Assessment/Plan Problem List/Assessment/Plan #Sepsis due to UTI and cholecystitis #Chest pain, likely biliary colic #Cholecystitis #Cholelithiasis #recent #mild anemia, probably ferropenic NPO IV fluids IV ceftriaxone + metronidazole Surgery consult due to HIDA scan positive Pain managment Case discussed with Dr Fontanez Plan discussed with: Patient, Other (rn) My Orders My Orders Orders - CHATA PHILLIP Procedure Category Date Status Time Electrocardigram EKG 08/07/24 Logged 11:38 Nm Hida Scan NM 08/07/24 Logged 11:06 Ceftriaxone Ivpb PHA 08/08/24 Transmitted Rocephin 09:00 Metronidazole Ivpb PHA 08/07/24 Transmitted Flagyl 22:00 CHATA PHILLIP RESIDENT Aug 07, 2024 14:15
[2024-08-07 16:20] VITALS: BP 113/71; PULSE 124; RESP 18; TEMP 98.3; O2SAT 99
--- NOTE | 2024-08-07 18:33 | DVH ---
Procedure: NM NM HIDA SCAN Exam Date: 08/07/2024 01:58 PM Clinical History: rule out cholceystitis Comparison Study: 08/06/2024 Nuclear Medicine Hepatobiliary Scan. Technique: Following the intravenous administration of 6.2 mCi of technetium 99m labeled Choletec multiple plana r abdominal planar images were obtained in anterior projection in 1 minute intervals for 60 minutes . Delayed images obtained at 4 hours. Findings: Rapid uptake and excretion from the liver. Gallbladder is not visualized at 60 minutes. 4 hour image s do not identify the gallbladder. Small bowel visualized at approximately 5-10 minutes. Impression: Findings consistent with cystic duct obstruction.
[2024-08-07 19:51] VITALS: BP 129/73; PULSE 112; RESP 18; TEMP 98; O2SAT 98
--- NOTE | 2024-08-07 20:03 | DVHSR ---
APPROVED REPORT EXAM: Two-dimensional and M-mode echocardiogram with Doppler and color Doppler. Blood Pressure: 111/68 mmHg INDICATION Chest Pain Poss Pericarditis RISK FACTORS Height: 5' 6", Weight: 205 DIMENSIONS LVDd4.3 (3.8-5.7cm)LA (2D)2.9 (1.9-4.0cm)Aortic Root2.8 (2.0-3.7cm) LVDs2.7 (2.5-4.0cm)LA (MM) (1.9-4.0cm)Aortic Cusp Exc1.6 (1.5-2.0cm) EF (%) 65.0 (55-70%)Rt. Atrium3.5 (1.9-4.0cm)Asc. Aorta cm IVSd0.8 (0.7-1.1cm)RV (D) (1.8-2.4cm) PWd0.8 (0.7-1.1cm) Mitral Valve MitralMitral Stenosis E wave0.80m/sMV Mean GR.mmHg A wave0.60m/sMV Peak GR.mmHg E/A ratio1.32D MVAcm2 Aortic Valve Aortic ValveAortic Stenosis V11.00m/Indy Mean GR.4mmHg V21.30m/Indy Peak GR.7mmHg LVOT Diameter2.2 (1.8-2.4cm)Doppler AVA2.92cm2 Pulmonic Valve V20.81m/s Other Information Quality : Technically LimitedRhythm : Tachycardia Conclusion LVEF 60-65% No significant pericardial effusion
[2024-08-07] MEDS: metroNIDAZOLE 500MG/100ML 100 ML IV SCH (21:15)
[2024-08-07 22:34] VITALS: PULSE 106
[2024-08-08] VITALS (9 sets, daily range): BP systolic 114–163; BP diastolic 64–74; PULSE 64–108; RESP 17–20; TEMP 97.5–98.4; O2SAT 95–99
[2024-08-08] MEDS: KETOROLAC TROMETH 30 MG/ML 1ML VIAL IV PRN (05:38)
[2024-08-08 07:24] LABS: Basophils # (auto) 0 10 ^3/uL (0-0.2); Basophils % (auto) 0.2 % (0.0-2.0); Eosinophils # (auto) 0 10 ^3/uL (0-0.8); Eosinophils % (auto) 0.2 % (0.0-7.0); Hematocrit 32.7 % (36.0-46.0); Hemoglobin 10.7 g/dL (12.2-16.2); Lymphocytes # (auto) 1.7 10 ^3/uL (0.4-5.4); Lymphocytes % (auto) 15.8 % (10.0-50.0); Mean Corpuscular Hemoglobin 25.3 pg (28.0-32.0); Mean Corpuscular Hgb Conc. 32.7 g/dL (32.0-36.0); Mean Corpuscular Volume 77.4 fL (80.0-100.0); Monocytes # (auto) 1.1 10 ^3/uL (0-1.3); Monocytes % (auto) 10.2 % (0.0-12.0); Neutrophils # (auto) 7.8 10 ^3/uL (1.6-8.6); Neutrophils % (auto) 73.6 % (37.0-80.0); Platelet Count (auto) 235 10^3/uL (140-450); Red Blood Cells 4.23 10^6/uL (4.0-5.20); White Blood Cell 10.6 10^3/uL (4.4-10.8)
[2024-08-08 07:29] LABS: Alanine Aminotransferase 14 U/L (7-40); Albumin 4.3 g/dL (3.2-4.8); Alkaline Phosphatase 72 U/L (46-116); Anion Gap 11 (5-15); Aspartate Aminotransferase 14 U/L (<34); BUN/Creatinine Ratio 12.3 (10.0-20.0); Blood Urea Nitrogen 9 mg/dL (9-23); Calcium 9.7 mg/dL (8.7-10.4); Carbon Dioxide 23 mmol/L (20-31); Glucose 98 mg/dL (74-106); Potassium 3.9 mmol/L (3.5-5.1); Sodium 141 mmol/L (136-145); Total Protein 7.3 g/dL (5.7-8.2)
[2024-08-08 07:30] LABS: Bilirubin, Total 0.4 mg/dL (0.2-1.0)
[2024-08-08 07:33] LABS: Chloride 107 mmol/L (98-107)
--- NOTE | 2024-08-08 09:26 | ECG ---
[facility] Test Date: 2024-08-07 Test Time: 19:21:42 Pat Name: BELEN MALONEY Department: Respiratoy Room: 0249 Gender: F Rn Psych: JOSE : 2000 Requested By: SG KIRKPATRICK Order Number: [id number] Reading MD: Pool Chaudhry Measurements Intervals [place] Rate: 104 P: 52 MA: 133 QRS: 76 QRSD: 90 T: 27 QT: 341 QTc: 449 Interpretive Statements Sinus tachycardia Electronically Signed On 08-11-2024 22:11:40 PDT by Pool Chaudhry Please click the below link to view image of tracing.
[2024-08-08] MEDS: cefTRIAXone 1GM/50ML D5W 50 ML IV SCH (09:30)
--- NOTE | 2024-08-08 11:51 | DVHPNRES ---
Progress Note Date Seen: Aug 08, 2024 Resident Creating Document: MELANIA PARTIDA DELMAR Has the PT tested + for MRSA If YES, has PT been informed?: No Medical Necessity Reason Pt with a Central, PICC or Fol: No Subjective Review of Systems Patient seen and examined at the bedside. Patient is seen complaining of abdominal pain. Objective vital signs Vital Sign Date Time Temp Pulse Resp B/P (MAP) Pulse Ox O2 Delivery O2 Flow Rate FiO2 08/08/24 09:00 97.5 81 17 123/72 (89) 99 97.5 08/08/24 08:00 Room Air* 0 21 Total Intake and Output 08/07/24 08/07/24 08/08/24 14:59 22:59 06:59 Intake Total 100 ml 100 ml Balance 100 ml 100 ml medications Current Medications Medications Dose Ordered Sig/Anthony Route Start Time Stop Time Status Last Admin Dose Admin Acetaminophen 650 mg Q6HP PRN PO 08/06/24 11:45 08/06/24 22:33 650 MG Ceftriaxone Sodium 50 ml @ 100 mls/hr DAILY@09 IV 08/08/24 09:00 Metronidazole 100 ml @ 100 mls/hr Q8HR IV 08/07/24 22:00 08/08/24 05:25 100 MLS/HR Ketorolac Tromethamine 15 mg Q6HPRN PRN IV 08/08/24 04:45 08/13/24 04:44 08/08/24 05:38 15 MG Examination General Appearance: Alert, Oriented X3, Cooperative, No acute distress HEENT: Atraumatic, PERRLA, EOMI, Mucous membrane moist/pink Respiratory: Clear to auscultation, Normal air movement Cardiovascular: Regular rate, Normal S1, Normal S2, No murmurs, no chest wall tenderness Abdominal: Normal bowel sounds, Soft, No tenderness, No hepatospenomegaly, No masses Extremities: No clubbing, No cyanosis, No edema, Normal pulses, No tenderness/swelling Skin: No rashes, No breakdown, No significant lesion Neuro: Normal gait, Normal speech, Strength at 5/5 X4 ext, Normal tone, Sensation intact, Cranial nerves 3-12 NL, Reflexes 2+ Psych/Mental Status: Mental status NL, Mood NL laboratory and microbiology Laboratory Tests 08/08/24 06:49 Test 08/08/24 06:49 Range/Units Serum Glucose 98 74-106 mg/dL Microbiology Date/Time Source Procedure Growth Status 08/06/24 11:02 Blood Blood Culture - Preliminary NO GROWTH AFTER 48 HOURS OF INCUBATION. Resulted 08/06/24 07:50 Voided Urine Urine Culture - Preliminary Resulted Labs and/or images reviewed: Labs reviewed by me, Image(s) reviewed by me Problem List/Assessment/Plan Problem List/Assessment/Plan #Sepsis due to UTI and cholecystitis #Chest pain, likely biliary colic #Cholecystitis #Cholelithiasis #recent #mild anemia, probably ferropenic NPO IV fluids IV ceftriaxone + metronidazole Surgery consult due to HIDA scan positive Pain managment Case discussed with Dr Fontanez Plan discussed with: Patient, Other (RN) My Orders My Orders Orders - MELANIA PARTIDA Procedure Category Date Status Time Npo (Nothing By DIET 08/08/24 Transmitted Mouth) Diet Breakfast MELANIA PARTIDA RESDIENT Aug 08, 2024 11:51
[2024-08-08 14:35] LABS: INR 1.03 (0.9-1.15); Prothrombin Time 10.9 sec (9.3-11.8)
--- NOTE | 2024-08-08 16:20 | DVHINCON2 ---
Date of service: Aug 08, 2024 Family History: Diabetes mellitus G8 FATHER Allergies: Coded Allergies: NO KNOWN ALLERGIES (Unverified , 10/20/23) Home Meds Active Scripts Cefdinir (Cefdinir) 300 Mg Cap, 1 CAP PO BID for 5 Days, #14 CAP Prov:DASH CLOUD MD 08/06/24 Current Medications Current Medications Medications (Trade) Dose Ordered Sig/Anthony Route PRN Reason Start Time Stop Time Status Last Admin Ceftriaxone Sodium 50 ml @ 100 mls/hr DAILY@09 IV 08/08/24 09:00 08/08/24 09:30 Metronidazole 100 ml @ 100 mls/hr Q8HR IV 08/07/24 22:00 08/08/24 14:00 Ketorolac Tromethamine (Toradol Injection) 15 mg Q6HPRN PRN IV MODERATE PAIN (4-6 PAIN SCALE) 08/08/24 04:45 08/13/24 04:44 08/08/24 05:38 Vital Signs Vital Signs Date Time Temp Pulse Resp B/P (MAP) Pulse Ox O2 Delivery O2 Flow Rate FiO2 08/08/24 13:00 97.5 64 17 114/67 (83) 98 97.5 08/08/24 08:00 Room Air* 0 21 Labs/Diagnostic Data Labs Test 08/08/24 13:34 08/08/24 06:49 08/07/24 04:21 08/06/24 13:25 Range/Units Prothrombin Time 10.9 9.3-11.8 sec Prothrombin Time INR 1.03 0.9-1.15 Activated Partial Thromboplast Time 28.0 24.5-34.5 SEC White Blood Count 10.6 # 4.4-10.8 10^3/uL Red Blood Count 4.23 4.0-5.20 10^6/uL Hemoglobin 10.7 L 12.2-16.2 g/dL Hematocrit 32.7 L 36.0-46.0 % Mean Corpuscular Volume 77.4 L 80.0-100.0 fL Mean Corpuscular Hemoglobin 25.3 L 28.0-32.0 pg Mean Corpuscular Hemoglobin Concent 32.7 32.0-36.0 g/dL Red Cell Distribution Width 16.0 H 11.8-14.3 % Platelet Count 235 140-450 10^3/uL Mean Platelet Volume 7.7 6.9-10.8 fL Neutrophils (%) (Auto) 73.6 37.0-80.0 % Lymphocytes (%) (Auto) 15.8 10.0-50.0 % Monocytes (%) (Auto) 10.2 0.0-12.0 % Eosinophils (%) (Auto) 0.2 0.0-7.0 % Basophils (%) (Auto) 0.2 0.0-2.0 % Neutrophils # (Auto) 7.8 1.6-8.6 10 ^3/uL Lymphocytes # (Auto) 1.7 0.4-5.4 10 ^3/uL Monocytes # (Auto) 1.1 0-1.3 10 ^3/uL Eosinophils # (Auto) 0 0-0.8 10 ^3/uL Basophils # (Auto) 0 0-0.2 10 ^3/uL Nucleated Red Blood Cells 0.0 % Sodium Level 141 136-145 mmol/L Potassium Level 3.9 3.5-5.1 mmol/L Chloride Level 107 98-107 mmol/L Carbon Dioxide Level 23 20-31 mmol/L Anion Gap 11 5-15 Blood Urea Nitrogen 9 9-23 mg/dL Creatinine 0.73 0.550-1.02 mg/dL Glomerular Filtration Rate Calc 118 >90 mL/min BUN/Creatinine Ratio 12.3 10.0-20.0 Serum Glucose 98 74-106 mg/dL Calcium Level 9.7 8.7-10.4 mg/dL Total Bilirubin 0.4 0.2-1.0 mg/dL Aspartate Amino Transferase (AST) 14 <34 U/L Alanine Aminotransferase (ALT) 14 7-40 U/L Alkaline Phosphatase 72 46-116 U/L Total Protein 7.3 5.7-8.2 g/dL Albumin 4.3 3.2-4.8 g/dL Magnesium Level 1.8 1.6-2.6 mg/dL Triglycerides Level 51 < 150 mg/dL Cholesterol Level 121 < 200 mg/dL LDL Cholesterol 55 < 100 mg/dL HDL Cholesterol 52 40-59 mg/dL Lipase 25 12-53 U/L Beta HCG, Quantitative 0.6 L 1.5-4.2 mIU/mL Free Thyroxine (T4) Calculated 0.96 0.89-1.76 ng/dL Test 08/06/24 11:02 08/06/24 10:09 08/06/24 07:50 08/06/24 07:15 Range/Units Lactic Acid Level 1.0 0.4-2.0 mmol/L Troponin I High Sensitivity < 3 L </=34 ng/L Urine Color Colorless Yellow Urine Clarity Turbid H Clear Urine pH 7.0 5.0-9.0 Urine Specific Hodgen 1.018 1.001-1.035 Urine Protein Negative Negative Urine Ketones Negative Negative Urine Blood 3+ H Negative /uL Urine Nitrite 1+ H Negative Urine Bilirubin Negative Negative Urine Urobilinogen Normal Negative mg/dL Urine Leukocyte Esterase 2+ Negative /uL Urine RBC 38 0 - 4 /hpf Urine Microscopic WBC 51 H 0-5 /HPF Urine Squamous Epithelial Cells Few <5 /hpf Urine Bacteria Few H None Seen /hpf Urine Glucose Normal Normal mg/dL Urine Opiates Screen Neg NEGATIVE Urine Fentanyl Screen Neg NEGATIVE Urine Barbiturates Screen Neg NEGATIVE Urine Phencyclidine Screen Neg NEGATIVE Urine Amphetamines Screen Neg NEGATIVE Urine Benzodiazepines Screen Neg NEGATIVE Urine Cocaine Screen Neg NEGATIVE Urine Cannabinoids Screen Neg NEGATIVE Erythrocyte Sedimentation Rate 32 H 0-20 mm/hr C-Reactive Protein High Sensitivity 9.08 H <1.0 mg/dL Microbiology Date/Time Source Procedure Growth Status 08/06/24 11:02 Blood Blood Culture - Preliminary NO GROWTH AFTER 48 HOURS OF INCUBATION. Resulted 08/06/24 07:50 Voided Urine Urine Culture - Final Complete Assessment [id number] AFEBRILE VSS ABD SOFT TENDER RUQ WBC WNL LFT WNL AC CHOLECYSTITIS LAP/OPEN CHOLECYSTECTOMY PT TO DECIDE CONSIDER EMERGENT SURGERY BASED ON ONGOING EVAL NURSE AND FAMILY AT BEDSIDE Plan discussed with: Patient SAVANNAH RODAS MD Aug 08, 2024 16:20
--- NOTE | 2024-08-08 20:59 | DVHINCON2 ---
DATE OF CONSULTATION: 08/08/2024 HISTORY OF PRESENT ILLNESS: The patient is 23 years old, coming in with right upper quadrant pain, now feeling better, some nausea, no vomiting. No constipation or diarrhea. No hematemesis or melena. No bleeding per rectum. PAST MEDICAL HISTORY: No diabetes or hypertension. PAST SURGICAL HISTORY: Nothing significant. PHYSICAL EXAMINATION: VITAL SIGNS: Afebrile, stable signs with no evidence of pallor, cyanosis or jaundice. NECK: Supple, nontender with no thyromegaly or lymphadenopathy. CHEST AND LUNGS: Clear. HEART: Within normal limits. ABDOMEN: Soft, tender in the right upper quadrant with minimal rebound. EXTREMITIES: Unremarkable. NEUROLOGICALLY: Intact. CLINICAL IMPRESSION: The patient has acute cholecystitis. PLAN: Consider laparoscopy, possible open cholecystectomy. Benefits were discussed and consent obtained. The patient did decide and then once she is consented, then the surgery can be considered based upon ongoing evaluation. MD OMAR Rossi/RODOLFO TID: [id number] RECEIPT: [id number] cc: Tristian Tinoco NP
[2024-08-09] VITALS (10 sets, daily range): BP systolic 97–138; BP diastolic 52–92; PULSE 68–90; RESP 12–20; TEMP 96.1–98.5; O2SAT 97–100
[2024-08-09 07:33] LABS: Basophils # (auto) 0 10 ^3/uL (0-0.2); Basophils % (auto) 0.4 % (0.0-2.0); Eosinophils # (auto) 0.1 10 ^3/uL (0-0.8); Eosinophils % (auto) 0.8 % (0.0-7.0); Hematocrit 31.9 % (36.0-46.0); Hemoglobin 10.2 g/dL (12.2-16.2); Lymphocytes # (auto) 1.5 10 ^3/uL (0.4-5.4); Lymphocytes % (auto) 15.8 % (10.0-50.0); Mean Corpuscular Hemoglobin 24.9 pg (28.0-32.0); Mean Corpuscular Hgb Conc. 32.1 g/dL (32.0-36.0); Mean Corpuscular Volume 77.8 fL (80.0-100.0); Monocytes # (auto) 0.9 10 ^3/uL (0-1.3); Monocytes % (auto) 9.4 % (0.0-12.0); Neutrophils % (auto) 73.6 % (37.0-80.0); Nucleated Red Blood Cells % 0.2 %; Platelet Count (auto) 262 10^3/uL (140-450); Red Blood Cells 4.11 10^6/uL (4.0-5.20); White Blood Cell 9.5 10^3/uL (4.4-10.8)
[2024-08-09 07:45] LABS: Anion Gap 9 (5-15); Carbon Dioxide 24 mmol/L (20-31); Sodium 141 mmol/L (136-145)
[2024-08-09 07:46] LABS: Calcium 9.4 mg/dL (8.7-10.4)
[2024-08-09 07:47] LABS: Chloride 108 mmol/L (98-107)
[2024-08-09 07:51] LABS: BUN/Creatinine Ratio 19.7 (10.0-20.0); Blood Urea Nitrogen 15 mg/dL (9-23); Glucose 94 mg/dL (74-106)
[2024-08-09] MEDS ORDERED: GLYCOPYRROLATE 0.2 MG/ML 1ML VIAL ONE (11:36)
[2024-08-09] MEDS ORDERED: SUGAMMADEX 200mg/2ml Vial (100MG/ML) IV ONE (11:36)
[2024-08-09] MEDS ORDERED: LIDOCAINE 2% (LOCAL ANESTH.) PF 5ml SDV ONE (11:36)
[2024-08-09] MEDS ORDERED: ROCURONIUM 10MG/ML 10ML VIAL IV ONE (11:36)
[2024-08-09] MEDS ORDERED: ePHEDrine SULFATE 50 MG/ML AMP ONE (11:36)
[2024-08-09] MEDS ORDERED: ONDANSETRON HCL 4 MG/2 ML VIAL ONE (11:36)
[2024-08-09] MEDS ORDERED: KETOROLAC TROMETH 30 MG/ML 1ML VIAL ONE (11:36)
[2024-08-09] MEDS ORDERED: HYDROmorphone HCL 2 MG/ML VL/or syr ONE (11:36)
[2024-08-09] MEDS ORDERED: fentaNYL CITRATE 100 MCG/2 ML VL ONE (11:36)
[2024-08-09] MEDS ORDERED: PROPOFOL 10 MG/ML 20 ML IV ONE (11:36)
[2024-08-09] MEDS ORDERED: DexAMETHasone SOD PHOS 10MG/1ML VIAL INJ ONE (11:36)
[2024-08-09] MEDS ORDERED: MIDAZOLAM HCL 2MG/2ML 2ml VIAL (1mg/ml) ONE (11:36)
[2024-08-09] MEDS: ceFAZolin 1GM/50ML 100 ML IV ONE (11:45)
[2024-08-09] MEDS: FAMOTIDINE (10MG/ML) 2ML VL IV ONE (12:10)
--- NOTE | 2024-08-09 13:55 | DVHOP2 ---
Operative Report [id number] AC CHOLECYSTITIS EMPYEMA OF THE GB DENSE ADHESIONS LAP CHOLECYSTOSTOMY, CHOLECYSTECTOMY LAP LYSIS OF ADHESIONS EBL 25 CC ONE DRAIN NO COMPLICATIONS SAVANNAH RODAS MD Aug 09, 2024 13:55
[2024-08-09] MEDS: ACETAMINOPHEN IV 100 ML IV ONE (14:05)
[2024-08-09] MEDS: HYDROmorphone HCL 2 MG/ML VL/or syr IV PRN (14:06)
[2024-08-09] MEDS: ACETAMINOPHEN IV 1000 MG/100ML (10MG/ML) IV ONE (14:06)
[2024-08-09] MEDS: HYDROmorphone HCL 2 MG/ML VL/or syr ONE (14:10)
--- NOTE | 2024-08-09 14:16 | DVHPNRES ---
Progress Note Date Seen: Aug 09, 2024 Resident Creating Document: CHATA PHILLIP RESIDENT Has the PT tested + for MRSA If YES, has PT been informed?: No Medical Necessity Reason Pt with a Central, PICC or Fol: No Subjective Review of Systems Meghann Garcia is a 23-year-old female with past medical history of anemia who presents to the ED today for chest pain and points to her epigastric area states that it does not radiate. She stated it initially started as upper back pain today. She reports the pain as 10/10 pulsating and constant.. Patient's spouse Amado is at the chair side. Patient also reports that this pain has not occurred before. Patient denies any recent travels, recent trauma or injury, recent sick contacts, recent ingestion of spoiled food, abdominal pain, nausea, vomiting, diarrhea, shortness of breath, lightheadedness, weakness, or dizziness. 08/07/2024: UA: UTI, chest ct scan: Possible inflammatory changes associated with the gallbladder, US: Cholelithiasis with sludge and thickened gallbladder wall. Negative sonographic pat's sign. IV fluids given, HR improves, AB will downgraded to ceftriaxone + metronidazole, HIDA scan showed cystic duct obstruction. 08/09/2024: patient will be taken to the OR for surgery, patient seen at 9 am Objective vital signs Vital Sign Date Time Temp Pulse Resp B/P (MAP) Pulse Ox O2 Delivery O2 Flow Rate FiO2 08/09/24 09:00 96.1 77 20 116/76 (89) 99 96.1 08/09/24 08:00 Room Air* 0 21 Total Intake and Output 08/08/24 08/08/24 08/09/24 15:00 23:00 07:00 Intake Total 150 ml 100 ml 340 ml Balance 150 ml 100 ml 340 ml medications Current Medications Medications Dose Ordered Sig/Anthony Route Start Time Stop Time Status Last Admin Dose Admin Acetaminophen 650 mg Q6HP PRN PO 08/06/24 11:45 08/06/24 22:33 650 MG Ceftriaxone Sodium 50 ml @ 100 mls/hr DAILY@09 IV 08/08/24 09:00 08/09/24 09:00 100 MLS/HR Metronidazole 100 ml @ 100 mls/hr Q8HR IV 08/07/24 22:00 08/09/24 05:06 100 MLS/HR Ketorolac Tromethamine 15 mg Q6HPRN PRN IV 08/08/24 04:45 08/13/24 04:44 08/09/24 13:56 15 MG Hydromorphone HCl 0.5 mg [id number] PRN IV 08/09/24 14:00 08/09/24 15:58 Examination General Appearance: Alert, Oriented X3, Cooperative, No acute distress HEENT: Atraumatic, PERRLA, EOMI, Mucous membr. moist/pink Respiratory: Normal air movement Cardiovascular: Normal S1, Normal S2 Abdominal: Soft, RUQ tenderness, pat neg Extremities: Normal pulses Skin: No significant lesion Neuro: Normal gait, Normal speech, Strength at 5/5 X4 ext, Normal tone, Sensation intact Psych/Mental Status: Mental status NL, Mood NL laboratory and microbiology Laboratory Tests 08/09/24 06:23 Test 08/09/24 06:23 Range/Units Serum Glucose 94 74-106 mg/dL Microbiology Date/Time Source Procedure Growth Status 08/06/24 11:02 Blood Blood Culture - Preliminary NO GROWTH AFTER 72 HOURS OF INCUBATION. Resulted 08/06/24 07:50 Voided Urine Urine Culture - Final Complete Problem List/Assessment/Plan Problem List/Assessment/Plan #Sepsis due to UTI and cholecystitis #Chest pain, likely biliary colic #Cholecystitis #Cholelithiasis #recent #mild anemia, probably ferropenic NPO IV fluids IV ceftriaxone + metronidazole Surgery consult due to HIDA scan positive: pending to transfer to OR Pain managment Case discussed with Dr Fontanez Plan discussed with: Patient, Other My Orders My Orders Orders - CHATA PHILLIP Procedure Category Date Status Time Transfer Orders XFER 08/09/24 Transmitted 09:19 CHATA PHILLIP RESIDENT Aug 09, 2024 14:16
[2024-08-09] MEDS ORDERED: HYDROmorphone HCL 2 MG/ML VL/or syr IV PRN (14:45)
[2024-08-09] MEDS: ONDANSETRON HCL 4 MG/2 ML VIAL IV ONE (14:56)
--- NOTE | 2024-08-09 15:34 | DVHOP ---
DATE OF SURGERY: 08/09/2024 PREOPERATIVE DIAGNOSIS: Acute cholecystitis with dense adhesions. POSTOPERATIVE DIAGNOSIS: Acute cholecystitis with dense adhesions. PROCEDURES: Laparoscopic cholecystostomy, laparoscopic cholecystectomy and lysis of adhesions. SURGEON: Vicente Flores MD. FURNACE UTILITY OPERATOR: None. ANESTHESIA: General. ESTIMATED BLOOD LOSS: Close to 25 mL. DRAINS: One drain was used. COMPLICATIONS: No complications were encountered. DESCRIPTION OF PROCEDURE: The patient was prepped and draped in the usual sterile fashion in the supine position. An infraumbilical incision was applied and was taken down to the fascia. The Veress needle was introduced and CO2 insufflation was started at a pressure of 15 mmHg. The needle was withdrawn, replaced by the 5 mm trocar, the telescope introduced, and the gallbladder was visualized. It was found to be acutely inflamed and distended with thick walled gallbladder with dense adhesions. Two 12 mm ports were applied close to the xiphisternum and two 5 mm ports were applied more laterally to the subcostal line. With the instruments in place and the patient in the head up and right upper lateral position, the adhesion was meticulously taken down. The gallbladder was decompressed during a laparoscopic cholecystostomy with a needle and syringe assembly and draining out almost white bile. This allowed the gallbladder to be decompressed and grasped with the fundus and infundibulum. The cystic duct and artery were , dissected out, and clipped proximally and distally using the Hem-o-Samreen clips and divided in between making sure the CBD was kept out of harm's way at all times. The gallbladder was detached from the liver bed using Harmonic dissection and placed in an EndoCatch bag and removed from the xiphisternal wound without any complication. Hemostasis was secured. Irrigation fluid was removed. The port sites were free from bleeding. SNoW coagulant and Jarod powder was applied to the liver bed for hemostasis. A size 19 Sam drainage tube was placed to drain the liver bed, bringing it out from the lateral subcostal incision. After that, one port had been withdrawn and then the EndoClose suture used for the fascial closure of the xiphisternal wound. All ports were withdrawn after all the CO2 had been let out and the patient was placed in supine. The wounds were then brought together using 3-0 Monocryl suture in a subcuticular fashion. Surgical glue was applied. The patient tolerated the procedure well and was taken back to recovery room in stable condition. MD OMAR Rossi/HOLGER/APRIL TID: [id number] RECEIPT: [id number] cc:
[2024-08-09] MEDS: MORPHINE SULFATE INJ 2 MG/ml SYRG IV PRN (16:46)
[2024-08-10] VITALS (7 sets, daily range): BP systolic 113–123; BP diastolic 73–78; PULSE 56–77; RESP 16–18; TEMP 95.6–97.7; O2SAT 98–100
[2024-08-10 06:37] LABS: Basophils # (auto) 0 10 ^3/uL (0-0.2); Basophils % (auto) 0.2 % (0.0-2.0); Eosinophils # (auto) 0 10 ^3/uL (0-0.8); Hemoglobin 11.1 g/dL (12.2-16.2); Monocytes # (auto) 0.5 10 ^3/uL (0-1.3)
[2024-08-10 06:39] LABS: Eosinophils % (auto) 0.1 % (0.0-7.0); Lymphocytes % (auto) 11.7 % (10.0-50.0); Mean Corpuscular Hemoglobin 25.3 pg (28.0-32.0); Mean Corpuscular Hgb Conc. 32.7 g/dL (32.0-36.0); Mean Corpuscular Volume 77.4 fL (80.0-100.0); Monocytes % (auto) 6.7 % (0.0-12.0); Neutrophils # (auto) 6.7 10 ^3/uL (1.6-8.6); Neutrophils % (auto) 81.3 % (37.0-80.0); Nucleated Red Blood Cells % 0.2 %; Platelet Count (auto) 302 10^3/uL (140-450); Red Cell Distribution Width 15.4 % (11.8-14.3); White Blood Cell 8.2 10^3/uL (4.4-10.8)
[2024-08-10 06:49] LABS: Alanine Aminotransferase 18 U/L (7-40); Alkaline Phosphatase 76 U/L (46-116); Anion Gap 10 (5-15); BUN/Creatinine Ratio 18.2 (10.0-20.0); Blood Urea Nitrogen 12 mg/dL (9-23); Calcium 9.1 mg/dL (8.7-10.4); Carbon Dioxide 24 mmol/L (20-31); Chloride 106 mmol/L (98-107); Potassium 4.2 mmol/L (3.5-5.1); Sodium 140 mmol/L (136-145)
[2024-08-10 06:50] LABS: Aspartate Aminotransferase 25 U/L (<34)
[2024-08-10 06:51] LABS: Bilirubin, Total 0.2 mg/dL (0.2-1.0); Glucose 126 mg/dL (74-106)
[2024-08-10] MEDS: ACETAMINOPHEN 325 MG TAB PO SCH (11:53)
--- NOTE | 2024-08-10 13:25 | DVHPN2 ---
Progress Note Date Seen: Aug 10, 2024 Has the PT tested + for MRSA If YES, has PT been informed?: No Medical Necessity Reason Pt with a Central, PICC or Fol: No Objective vital signs Vital Sign Date Time Temp Pulse Resp B/P (MAP) Pulse Ox O2 Delivery O2 Flow Rate FiO2 08/10/24 12:52 97.3 64 16 114/74 (87) 98 97.3 08/10/24 08:00 Room Air* 0 21 Total Intake and Output 08/09/24 08/09/24 08/10/24 15:00 23:00 07:00 Intake Total 280 ml 100 ml 740 ml Output Total 3 ml 20 ml 15 ml Balance 277 ml 80 ml 725 ml medications Current Medications Medications Dose Ordered Sig/Anthony Route Start Time Stop Time Status Last Admin Dose Admin Ceftriaxone Sodium 50 ml @ 100 mls/hr DAILY@09 IV 08/08/24 09:00 08/10/24 09:18 100 MLS/HR Metronidazole 100 ml @ 100 mls/hr Q8HR IV 08/07/24 22:00 08/10/24 05:13 100 MLS/HR Ketorolac Tromethamine 15 mg Q6HPRN PRN IV 08/08/24 04:45 08/13/24 04:44 08/10/24 09:59 15 MG Morphine Sulfate 2 mg Q6HPRN PRN IV 08/09/24 16:00 08/10/24 03:06 2 MG Acetaminophen 650 mg Q6HP PO 08/10/24 12:00 08/10/24 11:53 650 MG laboratory and microbiology Laboratory Tests 08/10/24 05:49 Test 08/10/24 05:49 Range/Units Serum Glucose 126 H 74-106 mg/dL Microbiology Date/Time Source Procedure Growth Status 08/06/24 11:02 Blood Blood Culture - Preliminary NO GROWTH AFTER 72 HOURS OF INCUBATION. Resulted 08/06/24 07:50 Voided Urine Urine Culture - Final Complete Problem List/Assessment/Plan Problem List/Assessment/Plan AFEBRILE VSS ABD SOFT LFT WNL WOUNDS HEALING DRAIN 10 CC SANGUINOUS KO DIET ADVANCE DIET KO FAMILY AND NURSE AT BEDSIDE NO COMPLICATIONS Plan discussed with: Patient My Orders My Orders Orders - SAVANNAH RODAS MD Procedure Category Date Status Time Clear Liq Diet DIET 08/09/24 Transmitted Dinner Dietary Evaluation Review Recommendations by RD: Dietary education by RD Comments: 1) Advance to low-fat diet when medically feasible, pending ST approval 2) Encourage optimal PO intake 3) Refer to outpatient RD/[facility] for weight management 4) Follow-up with gastroenterology 5) Continue to monitor I&O, labs, and skin integrity Expected Outcomes/Goals: 1) GI symptoms and labs to improve 2) diet to advance 3) f/u in 3-5 days SAVANNAH RODAS MD Aug 10, 2024 13:25
--- NOTE | 2024-08-10 15:32 | DVHPNRES ---
Progress Note Date Seen: Aug 10, 2024 Resident Creating Document: CHATA PHILLIP RESIDENT Has the PT tested + for MRSA If YES, has PT been informed?: No Medical Necessity Reason Pt with a Central, PICC or Fol: No Subjective Review of Systems Meghann Garcia is a 23-year-old female with past medical history of anemia who presents to the ED today for chest pain and points to her epigastric area states that it does not radiate. She stated it initially started as upper back pain today. She reports the pain as 10/10 pulsating and constant.. Patient's spouse Amado is at the chair side. Patient also reports that this pain has not occurred before. Patient denies any recent travels, recent trauma or injury, recent sick contacts, recent ingestion of spoiled food, abdominal pain, nausea, vomiting, diarrhea, shortness of breath, lightheadedness, weakness, or dizziness. 08/07/2024: UA: UTI, chest ct scan: Possible inflammatory changes associated with the gallbladder, US: Cholelithiasis with sludge and thickened gallbladder wall. Negative sonographic pat's sign. IV fluids given, HR improves, AB will downgraded to ceftriaxone + metronidazole, HIDA scan showed cystic duct obstruction. 08/09/2024: patient will be taken to the OR for surgery, patient seen at 9 am 08/10/2024: lap cholecystectomy: surgery w/o complications, tolerating clear liquid diet Objective vital signs Vital Sign Date Time Temp Pulse Resp B/P (MAP) Pulse Ox O2 Delivery O2 Flow Rate FiO2 08/10/24 12:52 97.3 64 16 114/74 (87) 98 97.3 08/10/24 08:00 Room Air* 0 21 Total Intake and Output 08/09/24 08/09/24 08/10/24 15:00 23:00 07:00 Intake Total 280 ml 100 ml 740 ml Output Total 3 ml 20 ml 15 ml Balance 277 ml 80 ml 725 ml medications Current Medications Medications Dose Ordered Sig/Anthony Route Start Time Stop Time Status Last Admin Dose Admin Ceftriaxone Sodium 50 ml @ 100 mls/hr DAILY@09 IV 08/08/24 09:00 08/10/24 09:18 100 MLS/HR Metronidazole 100 ml @ 100 mls/hr Q8HR IV 08/07/24 22:00 08/10/24 15:28 100 MLS/HR Ketorolac Tromethamine 15 mg Q6HPRN PRN IV 08/08/24 04:45 08/13/24 04:44 08/10/24 09:59 15 MG Morphine Sulfate 2 mg Q6HPRN PRN IV 08/09/24 16:00 08/10/24 03:06 2 MG Acetaminophen 650 mg Q6HP PO 08/10/24 12:00 08/10/24 11:53 650 MG Examination General Appearance: Alert, Oriented X3, Cooperative, No acute distress HEENT: Atraumatic, PERRLA, EOMI, Mucous membr. moist/pink Respiratory: Normal air movement Cardiovascular: Normal S1, Normal S2 Abdominal: surgical wounds clean, KENIA drain with serosanguineous drainage Extremities: Normal pulses Skin: No significant lesion Neuro: Normal gait, Normal speech, Strength at 5/5 X4 ext, Normal tone, Sensation intact Psych/Mental Status: Mental status NL, Mood NL laboratory and microbiology Laboratory Tests 08/10/24 05:49 Test 08/10/24 05:49 Range/Units Serum Glucose 126 H 74-106 mg/dL Microbiology Date/Time Source Procedure Growth Status 08/06/24 11:02 Blood Blood Culture - Preliminary NO GROWTH AFTER 72 HOURS OF INCUBATION. Resulted 08/06/24 07:50 Voided Urine Urine Culture - Final Complete Problem List/Assessment/Plan Problem List/Assessment/Plan #sp laparoscopic cholecystectomy #Sepsis due to UTI and cholecystitis #Chest pain, likely biliary colic #Cholecystitis #Cholelithiasis #recent #mild anemia, probably ferropenic Full liquid diet IV fluids IV ceftriaxone + metronidazole Pain managment: tylenol + ketorolac + morphine Case discussed with Dr Fontanez Plan discussed with: Patient, Other (rn) My Orders My Orders Orders - CHATA PHILLIP RESIDENT Procedure Category Date Status Time Morphine Sulfate PHA 08/09/24 In Process Injection 16:00 Acetaminophen Tablet PHA 08/10/24 In Process (Tylenol Tablet) 12:00 Dietary Evaluation Review Recommendations by RD: Dietary education by RD Comments: 1) Advance to low-fat diet when medically feasible, pending ST approval 2) Encourage optimal PO intake 3) Refer to outpatient RD/[facility] for weight management 4) Follow-up with gastroenterology 5) Continue to monitor I&O, labs, and skin integrity Expected Outcomes/Goals: 1) GI symptoms and labs to improve 2) diet to advance 3) f/u in 3-5 days CHATA PHILLIP RESIDENT Aug 10, 2024 15:32
[2024-08-11 01:00] VITALS: BP 117/75; PULSE 78; RESP 17; TEMP 97.7; O2SAT 99
[2024-08-11 05:00] VITALS: BP 129/87; PULSE 74; RESP 17; TEMP 97.2; O2SAT 98
[2024-08-11 08:00] VITALS: PULSE 64; RESP 16; O2SAT 98
[2024-08-11 09:00] VITALS: BP 122/80; PULSE 72; RESP 17; TEMP 97.5; O2SAT 99
--- NOTE | 2024-08-11 09:24 | DVHPN2 ---
Progress Note Date Seen: Aug 11, 2024 Has the PT tested + for MRSA If YES, has PT been informed?: No Medical Necessity Reason Pt with a Central, PICC or Fol: No Objective vital signs Vital Sign Date Time Temp Pulse Resp B/P (MAP) Pulse Ox O2 Delivery O2 Flow Rate FiO2 08/11/24 06:36 98.1 08/11/24 05:00 74 17 129/87 (101) 98 08/10/24 20:00 Room Air* 0 21 Total Intake and Output 08/10/24 08/10/24 08/11/24 15:00 23:00 07:00 Intake Total 100 ml 1000 ml 525 ml Output Total 30 ml Balance 100 ml 970 ml 525 ml medications Current Medications Medications Dose Ordered Sig/Anthony Route Start Time Stop Time Status Last Admin Dose Admin Ceftriaxone Sodium 50 ml @ 100 mls/hr DAILY@09 IV 08/08/24 09:00 08/11/24 09:02 100 MLS/HR Metronidazole 100 ml @ 100 mls/hr Q8HR IV 08/07/24 22:00 08/11/24 05:35 100 MLS/HR Ketorolac Tromethamine 15 mg Q6HPRN PRN IV 08/08/24 04:45 08/13/24 04:44 08/10/24 09:59 15 MG Morphine Sulfate 2 mg Q6HPRN PRN IV 08/09/24 16:00 08/10/24 03:06 2 MG Acetaminophen 650 mg Q6HP PO 08/10/24 12:00 08/11/24 05:36 650 MG laboratory and microbiology Laboratory Tests 08/10/24 05:49 Test 08/10/24 05:49 Range/Units Serum Glucose 126 H 74-106 mg/dL Microbiology Date/Time Source Procedure Growth Status 08/06/24 11:02 Blood Blood Culture - Preliminary NO GROWTH AFTER 72 HOURS OF INCUBATION. Resulted 08/06/24 07:50 Voided Urine Urine Culture - Final Complete Problem List/Assessment/Plan Problem List/Assessment/Plan AFEBRILE VSS ABD SOFT LFT WNL WOUNDS HEALING DRAIN 20 CC SANGUINOUS KO DIET ADVANCE DIET KO NURSE AT BEDSIDE NO COMPLICATIONS CLEARED FOR DISCHARGE INSTRUCTIONS RE DIET ACTIVITY, F/UP DRAIN CARE GIVEN Plan discussed with: Patient Dietary Evaluation Review Recommendations by RD: Dietary education by RD Comments: 1) Advance to low-fat diet when medically feasible, pending ST approval 2) Encourage optimal PO intake 3) Refer to outpatient RD/[facility] for weight management 4) Follow-up with gastroenterology 5) Continue to monitor I&O, labs, and skin integrity Expected Outcomes/Goals: 1) GI symptoms and labs to improve 2) diet to advance 3) f/u in 3-5 days SAVANNAH RODAS MD Aug 11, 2024 09:24
[2024-08-11] MEDS ORDERED: CIP500T PO (09:54)
[2024-08-11] MEDS ORDERED: NAPR-957 PO (09:54)
[2024-08-11] MEDS ORDERED: ACET-1882 PO (09:54)
[2024-08-11 11:57] VITALS: BP 122/80; PULSE 72; RESP 17; TEMP 97.5; O2SAT 99
--- NOTE | 2024-08-11 19:11 | DVHDSRES ---
Discharge Summary Date of Admission Resident Creating Document: CHATA PHILLIP RESIDENT Aug 06, 2024 at 11:33 Date of Discharge: Aug 11, 2024 Labs/Diagnostic Data: Laboratory Results Test 08/10/24 05:49 08/08/24 13:34 08/07/24 04:21 08/06/24 13:25 White Blood Count 8.2 10^3/uL (4.4-10.8) Red Blood Count 4.40 10^6/uL (4.0-5.20) Hemoglobin 11.1 g/dL (12.2-16.2) Hematocrit 34.0 % (36.0-46.0) Mean Corpuscular Volume 77.4 fL (80.0-100.0) Mean Corpuscular Hemoglobin 25.3 pg (28.0-32.0) Mean Corpuscular Hemoglobin Concent 32.7 g/dL (32.0-36.0) Red Cell Distribution Width 15.4 % (11.8-14.3) Platelet Count 302 10^3/uL (140-450) Mean Platelet Volume 7.5 fL (6.9-10.8) Neutrophils (%) (Auto) 81.3 % (37.0-80.0) Lymphocytes (%) (Auto) 11.7 % (10.0-50.0) Monocytes (%) (Auto) 6.7 % (0.0-12.0) Eosinophils (%) (Auto) 0.1 % (0.0-7.0) Basophils (%) (Auto) 0.2 % (0.0-2.0) Neutrophils # (Auto) 6.7 10 ^3/uL (1.6-8.6) Lymphocytes # (Auto) 1.0 10 ^3/uL (0.4-5.4) Monocytes # (Auto) 0.5 10 ^3/uL (0-1.3) Eosinophils # (Auto) 0 10 ^3/uL (0-0.8) Basophils # (Auto) 0 10 ^3/uL (0-0.2) Nucleated Red Blood Cells 0.2 % Sodium Level 140 mmol/L (136-145) Potassium Level 4.2 mmol/L (3.5-5.1) Chloride Level 106 mmol/L (98-107) Carbon Dioxide Level 24 mmol/L (20-31) Anion Gap 10 (5-15) Blood Urea Nitrogen 12 mg/dL (9-23) Creatinine 0.66 mg/dL (0.550-1.02) Glomerular Filtration Rate Calc 126 mL/min (>90) BUN/Creatinine Ratio 18.2 (10.0-20.0) Serum Glucose 126 mg/dL (74-106) Calcium Level 9.1 mg/dL (8.7-10.4) Total Bilirubin 0.2 mg/dL (0.2-1.0) Aspartate Amino Transferase (AST) 25 U/L (<34) Alanine Aminotransferase (ALT) 18 U/L (7-40) Alkaline Phosphatase 76 U/L (46-116) Total Protein 7.0 g/dL (5.7-8.2) Albumin 4.0 g/dL (3.2-4.8) Prothrombin Time 10.9 sec (9.3-11.8) Prothrombin Time INR 1.03 (0.9-1.15) Activated Partial Thromboplast Time 28.0 SEC (24.5-34.5) Magnesium Level 1.8 mg/dL (1.6-2.6) Triglycerides Level 51 mg/dL (< 150) Cholesterol Level 121 mg/dL (< 200) LDL Cholesterol 55 mg/dL (< 100) HDL Cholesterol 52 mg/dL (40-59) Lipase 25 U/L (12-53) Beta HCG, Quantitative 0.6 mIU/mL (1.5-4.2) Free Thyroxine (T4) Calculated 0.96 ng/dL (0.89-1.76) Test 08/06/24 11:02 08/06/24 10:09 08/06/24 07:50 08/06/24 07:15 Lactic Acid Level 1.0 mmol/L (0.4-2.0) Troponin I High Sensitivity < 3 ng/L (</=34) Urine Color Colorless (Yellow) Urine Clarity Turbid (Clear) Urine pH 7.0 (5.0-9.0) Urine Specific [place] 1.018 (1.001-1.035) Urine Protein Negative (Negative) Urine Ketones Negative (Negative) Urine Blood 3+ /uL (Negative) Urine Nitrite 1+ (Negative) Urine Bilirubin Negative (Negative) Urine Urobilinogen Normal mg/dL (Negative) Urine Leukocyte Esterase 2+ /uL (Negative) Urine RBC 38 /hpf (0 - 4) Urine Microscopic WBC 51 /HPF (0-5) Urine Squamous Epithelial Cells Few /hpf (<5) Urine Bacteria Few /hpf (None Seen) Urine Glucose Normal mg/dL (Normal) Urine Opiates Screen Neg (NEGATIVE) Urine Fentanyl Screen Neg (NEGATIVE) Urine Barbiturates Screen Neg (NEGATIVE) Urine Phencyclidine Screen Neg (NEGATIVE) Urine Amphetamines Screen Neg (NEGATIVE) Urine Benzodiazepines Screen Neg (NEGATIVE) Urine Cocaine Screen Neg (NEGATIVE) Urine Cannabinoids Screen Neg (NEGATIVE) Erythrocyte Sedimentation Rate 32 mm/hr (0-20) C-Reactive Protein High Sensitivity 9.08 mg/dL (<1.0) Other Laboratory Tests 08/10/24 05:49 Final Diagnosis/Problems List Cholecystectomy Discharge Disposition: Home Discharge Instruct/Medications Diet: See Comment Diet comment: advance diet slowly Activity: No Restrictions, As Tolerated Follow Up/Referral: fu with dr ingram and [facility] Medications: see prescription Discharge Statement: "Patient was advised to return to the ER or call 911 if any headaches, dizziness, shortness of breath, chest pain, abdominal pain, bleeding, fevers, or worsening of medical condition. Patient was counseled about treatment plan, medications, possible side effects, patientverbalized understanding. All questions were answered to the best of my ability. This discharge took greater then 30 minutes in planning, reviewing documentation, counseling the patient, and discussing with other team members." ASSESSMENT ASSESSMENT Assessment Cholecystectomy CHATA PHILLIP RESIDENT Aug 11, 2024 19:11
== END 2024-08-11 14:05 | disposition home or self-care (01) | DRG 854 ==
LOC: ER 06:29 → OVERFLOW 11:33 → TELE-EAST 08-07 22:17 → EAST 08-09 19:37
PROVIDERS: ADMIT Student in an Organized Health Care Education/Training Program; ATTEND Student in an Organized Health Care Education/Training Program
PROC: 0FT44ZZ Resection of Gallbladder, Percutaneous Endoscopic Approach (ICD-10-PCS; principal; 2024-08-09 11:47)
DX: A41.9 Sepsis, unspecified organism (principal); N12 Tubulo-interstitial nephritis, not specified as acute or chronic; N30.01 Acute cystitis with hematuria; D64.9 Anemia, unspecified; K66.0 Peritoneal adhesions (postprocedural) (postinfection); Z83.3 Family history of diabetes mellitus; Z79.899 Other long term (current) drug therapy
CPT/HCPCS: 36415; 71045; 71250; 76705; 78226; 80048; 80053; 80061; 80307; 81001; 83605; 83690; 83735; 84439; 84484; 84702; 85025; 85610; 85652; 85730; 86141; 86850; 86900; 86901; 87040; 87086; 93005; 93306; 96372; G0378; J0131; J0692; J0696; J1100; J1885; J2003; J2250; J2405; J2704; J3490

== ENCOUNTER → 2024-08-20 10:46 | Emergency (ER) | payer BC, MEDICAID ==
[~2024-08-20] VITALS: Ht 167.6 cm; Wt 92.3 kg
[~2024-08-20 10:46] MED LIST: ACET-1882 PO; CEFD300C2 PO; CIP500T PO; NAPR-957 PO
[2024-08-20 11:10] VITALS: BP 113/71; PULSE 87; RESP 17; TEMP 98; O2SAT 99
--- NOTE | 2024-08-20 11:16 | ED.PDOC ---
History of Present Illness HPI Comments A 23 YEAR-OLD FEMALE PRESENTS TO THE ED WITH A CHIEF COMPLAINT OF OPEN WOUND BLEEDING POST GALLBLADDER REMOVAL SURGERY (08/09/24). PATIENT REPORTS THAT SHE WAS TOLD TO COME TO THE ED WITH OPEN WOUND AND MINIMAL BLEEDING NOTED OF X2 DAYS AGO. PATIENT HAS NO FURTHER COMPLAINTS AT THIS TIME AND OTHERWISE DENIES FURTHER ASSOCIATED SYMPTOMS OF PAIN UPON PALPATION, NAUSEA, VOMITING, AND DIZZINESS. PATIENT IS ALERT, ORIENTED X 4, AND HAS STEADY GAIT. Chief Complaint: WOUND CHECK Time Seen by MD: 11:09 Primary Care Provider: DR DEY Reviewed Notes: Medications, Allergies Allergies: Coded Allergies: NO KNOWN ALLERGIES (Unverified , 10/20/23) Home Meds Active Scripts Acetaminophen (Acetaminophen) 325 Mg Tab, 325 MG PO TID for 10 Days, #30 TAB Prov:CHATA PHILLIP 08/11/24 Naproxen (Naproxen) 375 Mg Tab, 375 MG PO BID for 7 Days, #14 TAB Prov:CHATA PHILLIP 08/11/24 Ciprofloxacin Hydrochloride (Ciprofloxacin HCl) 500 Mg Tab, 500 MG PO BID for 7 Days, #14 TAB Prov:CHATA PHILLIP 08/11/24 Cefdinir (Cefdinir) 300 Mg Cap, 1 CAP PO BID for 5 Days, #14 CAP Prov:DASH CLOUD MD 08/06/24 Information Source: Patient Mode of Arrival: Ambulatory Severity: Moderate Timing: Days (X2) Duration: Since onset (MINIMAL BLEEDING NOTED ) Medication Refill: For: Other (WOUND RECHECK OF RIGHT ABD WALL ) Past Medical History PAST MEDICAL HISTORY: Anemia Surgical History: Cholecystectomy [employer] WORKER History: No Pertinent [employer] WORKER History Family History Family History: Family hx of DM Social History Smoker: Non-Smoker Alcohol: Denies ETOH Use Drugs: Denies Drug Use Lives In: Home Constitutional: denies: chills, diaphoresis, fatigue, fever, malaise, sweats, weakness, others EENTM: denies: blurred vision, double vision, ear bleeding, ear discharge, ear drainage, ear pain, ear ringing, eye pain, eye redness, hearing loss, mouth pain, mouth swelling, nasal discharge, nose bleeding, nose congestion, nose pain, photophobia, tearing, throat pain, throat swelling, voice changes, others Respiratory: denies: cough, hemoptysis, orthopnea, SOB at rest, shortness of breath, SOB with excertion, stridor, wheezing, others Cardiovascular: denies: chest pain, dizzy spells, diaphoresis, Dyspnea on exertion, edema, irregular heart beat, left arm pain, lightheadedness, palpitations, PND, syncope, others Gastrointestinal: reports: others (MINIMAL BLEEDING NOTED S/P CHOLESYSTECTOMY ); denies: abdomen distended, abdominal pain, blood streaked bowels, constipated, diarrhea, dysphagia, difficulty swallowing, hematemesis, melena, nausea, poor appetite, poor fluid intake, rectal bleeding, rectal pain, vomiting Genitourinary: denies: abnormal vagina bleeding, burning, dyspareunia, dysuria, flank pain, frequency, hematuria, incontinence, pain, , vagina discharge, urgency, others Neurological: denies: dizziness, fainting, headache, left sided numbness, left sided weakness, numbness, paresthesia, pre-existing deficit, right sided numbness, right sided weakness, seizure, speech problems, tingling, tremors, weakness, others Musculoskeletal: denies: back pain, gout, joint pain, joint swelling, muscle pain, muscle stiffness, neck pain, others Integumetry: reports: wounds (RECHECK OF RIGHT ABD WALL WOUND); denies: bruises, change in color, change in hair/nails, dryness, laceration, lesions, lumps, rash, others Allergic/Immunocompromised: denies: Difficulty Healing, Frequent Infections, Hives, Itching, others Hematologic/Lymphatic: denies: anemia, blood clots, easy bleeding, easy bruising, swollen glands, others Endocrine: denies: excessive hunger, excessive sweating, excessive thirst, excessive urination, flushing, intolerance to cold, intolerance to heat, unexplained weight gain, unexplained weight loss, others Psychiatric: denies: anxiety, bipolar disorder, depression, hopeless, panic disorder, schizophrenia, sleepless, suicidal, others All Other Systems: Reviewed and Negative Physical Exam General Appearance: No Apparent Distress, Normal HEENT: Normal ENT Inspection, PERRL/EOMI, Pharynx Normal, TMs Normal Neck: Full Range of Motion, Non-Tender, Normal, Normal Inspection Respiratory: Chest Non-Tender, Lungs Clear, No Accessory Muscle Use, No Respiratory Distress, Normal Breath Sounds Cardiovascular: No Edema, No JVD, No Murmur, No Gallop, Normal Peripheral Pulses, Regular Rate/Rhythm Breast Exam: Deferred Gastrointestinal: No Organomegaly, Non Tender, No Pulsatile Mass, Normal Bowel Sounds, Soft Genitalia: Deferred Pelvic: Deferred Rectal: Deferred Extremities: No calf tenderness, Normal capillary refill, Normal inspection, Normal range of motion, Non-tender, No pedal edema Musculoskeletal : Apperance: Normal Neurologic: Alert, sales exhibitor II-XII nml as Tested, No Motor Deficits, Normal Affect, Normal Mood, No Sensory Deficits Cerebellar Function: Normal Reflexes: Normal Skin: Dry, Normal Color, Warm, Wounds (RIGHT ABD WALL SURGIC WOUND HEALING, NO REDNESS, SWELLING AND BLEEDING. ) Peripheral Pulses: 2+ carotid (R), 2+ carotid (L) Lymphatic: No Adenopathy Was a procedure done? Was a procedure done?: No Differential Dx Considerations may include: WOUND RECHECK OF RIGHT ABD WALL X-Ray, Labs, Meds, VS Vital Signs Date Time Temp Pulse Resp B/P (MAP) Pulse Ox O2 Delivery O2 Flow Rate FiO2 08/20/24 11:10 98.0 87 17 113/71 (85) 99 98.0 X-Ray, Labs, Meds, VS Comment EXTERNAL MEDICAL RECORDS: NONE INDEPENDENT HISTORIANS: NONE SOCIAL DETERMINANTS OF HEALTH: NONE LABS ORDERED: NONE REVIEWED AND INTERPRETED RESULTS: NONE IMAGING ORDERED: NONE TREATMENTS ORDERED: NONE PATIENT'S CASE AND RESULTS HAVE BEEN DISCUSSED WITH THE ED ATTENDING PHYSICIAN AND THEY AGREE WITH MY PLAN OF CARE. I HAVE DISCUSSED IMAGING AND LAB RESULTS WITH THE PATIENT AND HAVE INSTRUCTED THE PATIENT TO FOLLOW UP WITH THEIR PCP IN 1-2 DAYS. THE PATIENT FULLY UNDERSTANDS THEIR RESULTS AND ARE AWARE THEY NEED TO FOLLOW UP WITH THEIR PCP FOR FURTHER EVALUATION IF THEIR SYMPTOMS PERSIST. Time of 1ST Reevaluation: 11:26 Reevaluation 1ST: Improved Patient Education/Counseling: Diagnosis, Treatment, Need For Follow Up Family Education/Counseling: Diagnosis, Treatment, Need For Follow Up Medical Screening: No EMC Exist At This Time SEPSIS Sepsis Screen Vital Signs Date Time Temp Pulse Resp B/P (MAP) Pulse Ox O2 Delivery O2 Flow Rate FiO2 08/20/24 11:10 98.0 87 17 113/71 (85) 99 98.0 Departure 1 Departure Time of Disposition: 11: Impression: Primary Impression: Encounter for wound re-check Disposition: HOME / SELF CARE / HOMELESS Condition: Stable Additional Instructions: FOLLOW-UP WITH PCP IN 1 TO 2 DAYS. RETURN TO ED FOR ANY NEW OR WORSENING SYMPTOMS. Discharged With: Self Critical Care Note Critical Care Time?: No Stability Stability form required: No Heart Score Heart Score: Heart Score Response (Comments) Value History N/A 0 EKG N/A 0 Age N/A 0 Risk Factors N/A 0 Troponin N/A 0 Total 0 I personally scribed for GREGG PUTNAM ([email or web address]) on 08/20/24 at 11:16. El ectronically submitted by Paris Aquino ([facility]). GREGG PUTNAM Aug 20, 2024 11:16
== END | disposition home or self-care (01) ==
LOC: ER 10:46
DX: S31.109D Unspecified open wound of abdominal wall, unspecified quadrant without penetration into peritoneal cavity, subsequent encounter (principal); Z90.49 Acquired absence of other specified parts of digestive tract; Z79.899 Other long term (current) drug therapy; X58.XXXD Exposure to other specified factors, subsequent encounter